=== PATIENT | female | born 1975 | race Caucasian/White ===

== ENCOUNTER → 2016-09-23 | Outpatient (CLI) | payer BC ==
--- NOTE | 2016-09-26 13:59 | Diagnostic Imaging Report ---
Bilateral screening mammogram. The current study was also evaluated with a Computer Aided Detection (CAD) system. INDICATION: Screening. No current complaints stated on the questionnaire. COMPARISON: 09/05/2014. FINDINGS: The breasts are composed of extremely dense parenchyma which would decrease mammographic sensitivity. There is no definite mass, architectural distortion, or suspicious calcifications. Allowing for technique and positional differences, no suspicious change is seen. IMPRESSION: Dense breasts with no definite change. ACR BI-RADS Category 2: Benign findings. Result letter will be mailed to the patient. Note: At least 10% of breast cancer is not imaged by mammography. Dictated by: Dictated on workstation # [id number]
== END ==
LOC: RAD 11:42
PROVIDERS: ATTEND Family Medicine
DX: Z12.31 Encounter for screening mammogram for malignant neoplasm of breast (principal)

== ENCOUNTER 2017-07-25 21:47 | Emergency (ER) | payer BC ==
[~2017-07-25] VITALS: Ht 177.8 cm; Wt 71.7 kg
--- OUTSIDE RECORDS SUMMARY | 2017-07-25 21:52 | XMS REPORT | Continuity of Care Document ---
Author Author [facility] Organization [facility] Address Unknown Phone Unavailable Allergies Active Description Code Type Severity Reaction Onset Reported/Identified Relationship to Patient Clinical Status Yes NKANo Known Allergies NKA Miscellaneous Allergy Unknown N/ A 01/31/2006 Medications Problems Date Dx Coded Attending Type Code Diagnosis Diagnosed By 10/02/2014 CHRISTIANO BURDICK MD Ot 241.0 10/02/2014 CHRISTIANO BURDICK MD Ot V76.12 01/04/2015 Ot 241.0 01/04/2015 Ot 241.0 01/04/2015 Ot V67.9 01/04/2015 CHRISTIANO BURDICK MD Ot 241.0 01/04/2015 CHRISTIANO BURDICK MD Ot 241.0 01/04/2015 CHRISTIANO UBRDICK MD Ot 241.0 01/04/2015 CHRISTIANO BURDICK MD Ot V76.12 03/02/2015 BRENDAN BROWNING MD Ot 241.1 03/02/2015 BRENDAN BROWNING MD Ot 626.4 03/02/2015 BRENDAN BROWNING MD Ot 704.00 02/29/2016 Ot 241.0 NONTOX UNINODULAR GOITER 02/29/2016 Ot 241.0 NONTOX UNINODULAR GOITER 02/29/2016 Ot V67.9 FOLLOW-UP EXAM NOS 02/29/2016 CHRISTIANO BURDICK MD Ot 241.0 NONTOX UNINODULAR GOITER 02/29/2016 CHRISTIANO BURDICK MD Ot 241.0 NONTOX UNINODULAR GOITER 02/29/2016 CHRISTIANO BURDICK MD Ot 241.0 NONTOX UNINODULAR GOITER 02/29/2016 CHRISTIANO BURDICK MD Ot V76.12 OTH SCREEN MAMMO-MALIGN NEOPLASM OF VAN[place]NA 02/29/2016 BRENDAN BROWNING MD Ot 241.1 NONTOX MULTINODUL GOITER 02/29/2016 BRENDAN BROWNING MD Ot 626.4 IRREGULAR MENSTRUATION 02/29/2016 BRENDAN BROWNING MD Ot 704.00 ALOPECIA NOS 09/24/2016 BRENDAN BROWNING MD Ot Z12.31 ENCNTR SCREEN MAMMOGRAM FOR MALIGNANT NE 09/24/2016 BRENDAN BROWNING MD Ot Z12.31 ENCNTR SCREEN MAMMOGRAM FOR MALIGNANT NE 10/01/2016 BRENDAN BROWNING MD Ot Z12.31 ENCNTR SCREEN MAMMOGRAM FOR MALIGNANT NE Procedures Results Encounters ACCT No. Visit Date/Time Discharge Status Pt. Type Provider Facility Loc./Unit Complaint [id number] 09/23/2016 11:42:00 2016 23:59:59 CLS Outpatient BRENDAN BROWNING MD [facility] RAD SCREENING [id number] 02/13/2015 10:58:00 2014 23:59:59 CLS Outpatient BRENDAN BROWNING MD [facility] RAD [id number] 09/05/2014 08:37:00 2013 23:59:59 CLS Outpatient CHRISTIANO BURDICK MD [facility] RAD [id number] 08/12/2013 11:55:00 2012 23:59:59 CLS Outpatient CHRISTIANO BURDICK MD [facility] RAD [id number] 02/04/2013 10:06:00 2012 23:59:59 CLS Outpatient CHRISTIANO BURDICK MD [facility] RAD [id number] 07/25/2017 21:49:00 ACT Emergency CYRUS DOTAN [facility] ER STOMACH PAIN [id number] 08/02/2012 09:36:00 Document Registration [id number] 02/19/2012 10:37:00 Document Registration
[2017-07-25] MEDS ORDERED: KETOROLAC 30 MG/ML VIAL IVP STA (22:28)
[2017-07-25] MEDS ORDERED: LACTATED RINGERS 1,000 ML IV ONE (22:28)
[2017-07-25] MEDS ORDERED: FAMOTIDINE 20MG/2ML IV (PEPCID) IV STA (22:28)
[2017-07-25 22:30] LABS: BASOPHILS % (AUTO) 0 % (0-10); EOSINOPHILS # (AUTO) 0.1 10^3/uL (0.0-0.3); EOSINOPHILS % (AUTO) 1 % (0-10); LYMPHOCYTES # (AUTO) 2.4 X 10^3 (1.0-4.0); LYMPHOCYTES % (AUTO) 39 % (12-44); MEAN CORPUSCULAR HEMOGLOBIN 30 PG (25-34); MEAN CORPUSCULAR HGB CONC 34 G/DL (32-36); MEAN CORPUSCULAR VOLUME 90 FL (80-99); MONOCYTES # (AUTO) 0.5 X 10^3 (0.0-1.0); MONOCYTES % (AUTO) 8 % (0-12); NEUTROPHILS # (AUTO) 3.3 X 10^3 (1.8-7.8); NEUTROPHILS % (AUTO) 53 % (42-75); PLATELET COUNT 214 10^3/uL (130-400); RED BLOOD COUNT 4.14 10^6/uL (4.35-5.85); RED CELL DISTRIBUTION WIDTH 12.1 % (10.0-14.5); WHITE BLOOD COUNT 6.2 10^3/uL (4.3-11.0)
[2017-07-25] MEDS ORDERED: HYOSCYAMINE 0.125 MG (LEVSIN) TAB SL ONE (22:30)
[2017-07-25] MEDS ORDERED: ONDANSETRON 4 MG/2 ML (SDV) Z0FRAN IVP ONE ×2 (22:30→23:00)
--- NOTE | 2017-07-25 22:34 | ED Abdominal Pain ---
General Chief Complaint: Abdominal/GI Problems Stated Complaint: STOMACH PAIN Nursing Triage Note: c/o epigastric pain x 2 hours with n/v Sepsis Screen: No Definite Risk Source of Information: Patient History of Present Illness Time Seen By Provider: 22:22 Initial Comments C/O SEVERE EPIGASTRIC PAIN X 2-3 HOURS ATE AT [facility] APPROXIMATELY 2 HOURS PRIOR TO ONSET OF SYMPTOMS--FAJITAS AND SMALL BITE OF GUACAMOLE--OTHER FAMILY MEMBERS ATE SAME EXCEPT GUACAMOLE, AND NO ONE ELSE ILL NO RADIATION OF PAIN PAIN IS CONSTANT NOTHING WORSENS OR IMPROVES PAIN + NAUSEA, AND VOMITED X 1 NO DIARRHEA, NORMAL BM TODAY NO FEVER NO URINARY SYMPTOMS NO HISTORY OF SIMILAR LMP 1 WEEK AGO, NORMAL, NO CONTROL PCP: DR. BROWNING Allergies and Home Medications Allergies Coded Allergies: No Known Allergies (Verified Allergy, Unknown, 01/31/06) Home Medications Hyoscyamine Sulfate 0.125 Mg Tab.subl, 1-2 TAB SL Q4H, #15 Prescribed by: TAN BRIDGES on 07/25/17 235 Nitrofurantoin Monohyd/M-Cryst 100 Mg Capsule, 100 MG PO BID, #20 Prescribed by: TAN BRIDGES on 07/25/17 2356 Ondansetron 4 Mg Tab.rapdis, 4 MG PO Q4H, #10 Prescribed by: TAN BRIDGES on 07/25/17 2356 Pantoprazole Sodium 40 Mg Tablet.dr, 40 MG PO DAILY, #15 Prescribed by: TAN BRIDGES on 07/25/17 235 Tramadol HCl 50 Mg Tablet, 50 MG PO Q4H, #20 Prescribed by: TAN BRIDGES on 07/25/17 2356 Review of Systems Constitutional: no symptoms reported Respiratory: No Symptoms Reported Cardiovascular: No Symptoms Reported Gastrointestinal: See HPI, Abdominal Pain, Denies Constipated, Denies Diarrhea , Nausea, Denies Poor Appetite, Denies Poor Fluid Intake, Vomiting Genitourinary: No Symptoms Reported Musculoskeletal: no symptoms reported, No back pain Skin: no symptoms reported Psychiatric/Neurological: No Symptoms Reported Endocrine: No Symptoms Reported Past Awafgpe-Jdlnyl-Fivvzw Hx Patient Social History Alcohol Use: Denies Use Recreational Drug Use: No Smoking Status: Never a Smoker Recent Foreign Travel: No Contact w/Someone Who Travel: No Recent Infectious Disease Expo: No Physical Abuse: No Sexual Abuse: No Surgeries History of Surgeries: Yes (LEFT INGUINAL HERNIA ) Surgeries: Abdominal Respiratory History of Respiratory Disorde: No Cardiovascular History of Cardiac Disorders: No Neurological History of Neurological Disord: No Reproductive System : No Female Reproductive Disorders: Denies Genitourinary History of Genitourinary Disor: No Gastrointestinal History of Gastrointestinal Di: No (LEFT INGUINAL HERNIA REPAIRED INFANT) Musculoskeletal History of Musculoskeletal Dis: No Endocrine History of Endocrine Disorders: No HEENT History of HEENT Disorders: No Cancer History of Cancer: No Psychosocial History of Psychiatric Problem: No Suicide Risk Score: 0 Integumentary History of Skin or Integumenta: No Blood Transfusions History of Blood Disorders: No Physical Exam Vital Signs VS - Last 72 Hours, by Label 07/25/17 07/26/17 22:07 00:15 Temp 98.4 98.2 Pulse 63 63 Resp 18 16 B/P (MAP) 124/79 Pulse Ox 96 94 O2 Delivery Room Air Capillary Refill : Less Than 3 Seconds General Appearance: WD/WN, no apparent distress HEENT: PERRL/EOMI, No scleral icterus (R), No scleral icterus (L) Neck: normal inspection Respiratory: normal breath sounds, no respiratory distress, no accessory muscle use Cardiovascular: regular rate, rhythm, no murmur Gastrointestinal: normal bowel sounds, soft, no organomegaly, no pulsatile mass , No distended, No guarding, No rebound, tenderness (MODERATE EPIGASTRIC TENDERNESS), No hernia, No mass Extremities: normal inspection Back: normal inspection, no CVA tenderness Neurologic/Psychiatric: manager ems II-XII nml as tested, no motor/sensory deficits, alert, normal mood/affect, oriented x 3 Skin: normal color, warm/dry, No jaundice, No rash Progress/Results/Core Measures Results/Orders Lab Results Laboratory Tests Test 07/25/17 22:10 07/25/17 22:19 Range/Units White Blood Count 6.2 4.3-11.0 10^3/uL Red Blood Count 4.14 L 4.35-5.85 10^6/uL Hemoglobin 12.6 11.5-16.0 G/DL Hematocrit 37 35-52 % Mean Corpuscular Volume 90 80-99 FL Mean Corpuscular Hemoglobin 30 25-34 PG Mean Corpuscular Hemoglobin Concent 34 32-36 G/DL Red Cell Distribution Width 12.1 10.0-14.5 % Platelet Count 214 130-400 10^3/uL Mean Platelet Volume 11.0 H 7.4-10.4 FL Neutrophils (%) (Auto) 53 42-75 % Lymphocytes (%) (Auto) 39 12-44 % Monocytes (%) (Auto) 8 0-12 % Eosinophils (%) (Auto) 1 0-10 % Basophils (%) (Auto) 0 0-10 % Neutrophils # (Auto) 3.3 1.8-7.8 X 10^3 Lymphocytes # (Auto) 2.4 1.0-4.0 X 10^3 Monocytes # (Auto) 0.5 0.0-1.0 X 10^3 Eosinophils # (Auto) 0.1 0.0-0.3 10^3/uL Basophils # (Auto) 0.0 0.0-0.1 10^3/uL Sodium Level 143 135-145 MMOL/L Potassium Level 3.3 L 3.6-5.0 MMOL/L Chloride Level 107 98-107 MMOL/L Carbon Dioxide Level 22 21-32 MMOL/L Anion Gap 14 5-14 MMOL/L Blood Urea Nitrogen 13 7-18 MG/DL Creatinine 0.76 0.60-1.30 MG/DL Estimat Glomerular Filtration Rate > 60 BUN/Creatinine Ratio 17 Glucose Level 149 H 70-105 MG/DL Calcium Level 8.9 8.5-10.1 MG/DL Total Bilirubin 0.4 0.1-1.0 MG/DL Aspartate Amino Transf (AST/SGOT) 23 5-34 U/L Alanine Aminotransferase (ALT/SGPT) 17 0-55 U/L Alkaline Phosphatase 44 40-136 U/L Total Protein 6.3 L 6.4-8.2 GM/DL Albumin 4.0 3.2-4.5 GM/DL Amylase Level 62 25-125 U/L Lipase 37 8-78 U/L Urine Color YELLOW Urine Clarity SLIGHTLY CLOUDY Urine pH 7 5-9 Urine Specific [place] 1.015 L 1.016-1.022 Urine Protein 1+ H NEGATIVE Urine Glucose (UA) NEGATIVE NEGATIVE Urine Ketones NEGATIVE NEGATIVE Urine Nitrite NEGATIVE NEGATIVE Urine Bilirubin NEGATIVE NEGATIVE Urine Urobilinogen 8 H NORMAL MG/DL Urine Leukocyte Esterase 2+ H NEGATIVE Urine RBC (Auto) 2+ H NEGATIVE Urine RBC 0-2 /HPF Urine WBC 5-10 H /HPF Urine Squamous Epithelial Cells 25-50 H /HPF Urine Renal Epithelial Cells NONE /HPF Urine Crystals NONE /LPF Urine Bacteria TRACE /HPF Urine Casts NONE /LPF Urine Mucus MODERATE H /LPF Urine Culture Indicated YES Urine Test NEGATIVE NEGATIVE My Orders Orders - TAN BRIDGES DO Saline Lock/Iv-Start (07/25/17 22:28) Saline Lock/Iv-Start (07/25/17 22:28) Lactated Ringers (Lr 1000 Ml Iv Solution (07/25/17 22:28) Ondansetron Injection (Zofran Injectio (07/25/17 22:30) Famotidine Injection (Pepcid Injection) (07/25/17 22:28) Hyoscyamine Sl Tablet (Levsin Sl Tablet) (07/25/17 22:30) Ketorolac Injection (Toradol Injection) (07/25/17 22:28) Abdomen/Kub 1[place] (07/25/17 22:30) Ct Abdomen/Pelvis W (07/25/17 22:30) Hcg,Qualitative Urine (07/25/17 22:52) Ondansetron Injection (Zofran Injectio (07/25/17 23:00) Rx-Hyoscyamine Tab (Rx-Levsin Sl) (07/25/17 23:51) Rx-Ondansetron Po (Rx-Zofran Po) (07/25/17 23:51) Rx-Tramadol Hcl (Rx-Ultram) (07/25/17 23:51) Medications Given in ED Current Medications Medications Dose Ordered Sig/Ajit Route Start Time Stop Time Status Last Admin Dose Admin Hyoscyamine Sulfate 0.25 mg ONCE ONCE SL 07/25/17 22:30 07/25/17 22:31 DC 07/25/17 23:05 0.25 MG Lactated Ringer's 1,000 ml @ 0 mls/hr Q0M ONCE IV 07/25/17 22:28 07/25/17 22:30 DC 07/25/17 23:05 0 MLS/HR Ondansetron HCl 4 mg ONCE ONCE IVP 07/25/17 22:30 07/25/17 22:31 DC 07/25/17 23:05 4 MG Vital Signs/I&O Vital Sign - Last 12Hours 07/25/17 07/26/17 22:07 00:15 Temp 98.4 98.2 Pulse 63 63 Resp 18 16 B/P (MAP) 124/79 Pulse Ox 96 94 O2 Delivery Room Air Blood Pressure Mean: 94 Progress Note : Progress Note ALL SYMPTOMS RESOLVED AT DISMISSAL DISCUSSED WITH PT AND POSSIBLE ETIOLOGIES, INCLUDING GALLBLADDER PROBLEMS, GASTRITIS/ULCERS, VIRAL ILLNESS, ETC. ALSO DISCUSSED OTHER TESTING THAT COULD BE DONE AN OUTPATIENT IF HER SYMPTOMS RECUR, INCLUDING ULTRASOUND, HIDA SCAN, EGD. ETC. PT COMFORTABLE GOING HOME AND SHE WILL FOLLOW UP WITH HER PCP FOR FURTHER CARE. Diagnostic Imaging Comments CT ABDOMEN/ PELVIS--NO ACUTE PROCESS, LARGE HEPATIC HEMANGIOMA; RIGHT OVARIAN CYST 4.7 CM, 9 MM NON-SPECIFIC ENDOMETRIAL FILLING DEFECT-POSSIBLY FIBROID OR POLYP. PER [facility] VIA FAX @ [phone] Reviewed: Reviewed by Me Departure Impression Impression: Primary Impression: Epigastric abdominal pain Additional Impressions: UTI (urinary tract infection) Hepatic hemangioma Ovarian cyst Disposition: HOME, SELF-CARE Condition: Improved Departure-Patient Inst. Referrals: BRENDAN BROWNING MD (PCP/Family) Primary Care Physician Patient Instructions: Acute Abdomen (Belly Pain), Adult (DC), Liver Hemangioma , Ovarian Cyst (DC), Urinary Tract Infection, Adult (DC) Add. Discharge Instructions: CLEAR LIQUIDS--WATER, BROTH, JELLO, GATORADE BRATS DIET--BANANAS, RICE, APPLESAUCE, TOAST, SALTINES FOLLOW UP WITH DR. BROWNING THIS WEEK FOR FURTHER CARE RETURN TO ER IF SYMPTOMS WORSEN All discharge instructions reviewed with patient and/or family. Voiced understanding. Scripts Ondansetron (Zofran Odt) 4 Mg Tab.rapdis 4 MG PO Q4H for Nausea/Vomiting, #10 TAB Prov: CYRUS,TAN K DO 07/25/17 Tramadol HCl (Ultram) 50 Mg Tablet 50 MG PO Q4H, #20 TAB Prov: CYRUS,TAN K DO 07/25/17 Pantoprazole Sodium (Protonix) 40 Mg Tablet. 40 MG PO DAILY, #15 TAB Prov: CYRUS,TAN K DO 07/25/17 Hyoscyamine Sulfate (Levsin-Sl) 0.125 Mg Tab.subl 1-2 TAB SL Q4H for Abdominal Pain, #15 TAB Prov: TAN BRIDGES DO 07/25/17 Nitrofurantoin Monohyd/M-Cryst (Macrobid 100 mg Capsule) 100 Mg Capsule 100 MG PO BID, #20 CAP Prov: TAN BRIDGES DO 07/25/17 TAN BRIDGES DO Jul 25, 2017 22:34
[2017-07-25 22:35] LABS: BILIRUBIN,URINE NEGATIVE (NEGATIVE); KETONES,URINE NEGATIVE (NEGATIVE); LEUKOCYTE ESTERASE ,URINE 2+ (NEGATIVE); NITRITE,URINE NEGATIVE (NEGATIVE); PH,URINE 7 (5-9); PROTEIN,URINE 1+ (NEGATIVE); UROBILINOGEN,URINE 8 MG/DL (NORMAL)
[2017-07-25 22:48] LABS: SQUAMOUS EPITHELIAL CELL,UR 25-50 /HPF
[2017-07-25 22:48] LABS: ALANINE AMINOTRANSFERASE 17 U/L (0-55); AMYLASE 62 U/L (25-125); ANION GAP 14 MMOL/L (5-14); ASPARTATE AMINO TRANSFERASE 23 U/L (5-34); BILIRUBIN,TOTAL 0.4 MG/DL (0.1-1.0); BLOOD UREA NITROGEN 13 MG/DL (7-18); BUN/CREATININE RATIO 17; CALCIUM 8.9 MG/DL (8.5-10.1); CARBON DIOXIDE 22 MMOL/L (21-32); CHLORIDE 107 MMOL/L (98-107); CREATININE SERUM 0.76 MG/DL (0.60-1.30); GFR ESTIMATED > 60; GLUCOSE 149 MG/DL (70-105); LIPASE 37 U/L (8-78); POTASSIUM 3.3 MMOL/L (3.6-5.0); SODIUM 143 MMOL/L (135-145); TOTAL PROTEIN 6.3 GM/DL (6.4-8.2)
[2017-07-25] MEDS ORDERED: RX-ONDANSETRON 4 MG ODT (ZOFRAN) PPK #4 PO STA (23:51)
[2017-07-25] MEDS ORDERED: RX-HYOSCYAMINE 0.125 MG SL (LEVSIN) PPK#6 SL STA (23:51)
[2017-07-25] MEDS ORDERED: RX-TRAMADOL 50 MG (ULTRAM) TAB PPK#4 PO STA (23:51)
[2017-07-25] MEDS ORDERED: PANT40TA2 PO (23:56)
[2017-07-25] MEDS ORDERED: HYOS0.1283 SL (23:56)
[2017-07-25] MEDS ORDERED: NITR-65 PO (23:56)
[2017-07-25] MEDS ORDERED: TRAM-42 PO (23:56)
[2017-07-25] MEDS ORDERED: ONDA4TAB8 PO (23:56)
[2017-07-26 00:15] VITALS: BP 118/77
--- NOTE | 2017-07-26 07:15 | Diagnostic Imaging Report ---
INDICATION: Epigastric pain. FINDINGS: KUB shows normal stool and gas pattern throughout the colon. The stomach and small bowel are not distended. There is no organomegaly. No pathologic calcification. IMPRESSION: Normal KUB. Dictated by: Dictated on workstation # [id number]
--- NOTE | 2017-07-26 07:51 | Diagnostic Imaging Report ---
PROCEDURE: CT abdomen and pelvis with contrast. TECHNIQUE: Multiple contiguous axial images were obtained through the abdomen and pelvis after administration of intravenous contrast. INDICATION: Epigastric pain. FINDINGS: There is an approximately 5.3 cm low-density lesion in the dome of the right lobe of the liver. This does show peripheral somewhat nodular enhancement following IV contrast and is most likely a cavernous hemangioma. There is edematous appearance extending along the portal system throughout the liver raising question of possible cholangitis. The gallbladder appears normal. Bile ducts are not dilated. Pancreas and spleen appear normal. Adrenal glands are normal. The kidneys are normal. There is normal enhancement of the aorta and abdominal vessels. Stomach and small bowel are not distended. The colon shows normal stool and gas pattern. Appendix is normal. There is question of endometrial thickening with possible endometrial polyp measuring approximately 10 mm. There is a cyst in the right adnexa measuring approximately 5 cm. No free fluid. No intra-abdominal adenopathy. No bony abnormalities. IMPRESSION: 1. 5.3 cm hypodense lesion in the dome of the liver with characteristics of cavernous hemangioma. 2. Hypodense edematous appearance along the portal venous system throughout the liver raising question of possible ascending cholangitis. Clinical correlation. 3. Cyst in right adnexa measuring approximately 5 cm most likely ovarian in nature. Question of endometrial polyp measuring approximately 10 mm. Would recommend nonemergent pelvic ultrasound. These findings are concordant with preliminary report. Dictated by: Dictated on workstation # [id number]
== END 2017-07-26 00:14 | disposition home or self-care (01) ==
LOC: EDUNIT# 21:47 → ER 21:49
DX: N39.0 Urinary tract infection, site not specified (principal); D18.03 Hemangioma of intra-abdominal structures; N83.201 Unspecified ovarian cyst, right side; Z87.19 Personal history of other diseases of the digestive system
CPT/HCPCS: 36415; 74000; 74177; 80053; 81000; 82150; 83690; 84703; 85025; 87088

== ENCOUNTER → 2017-08-06 | Outpatient (CLI) | payer BC ==
[~2017-08-06] MED LIST: HYOS0.1283 SL; NITR-65 PO; ONDA4TAB8 PO; PANT40TA2 PO; TRAM-42 PO
--- NOTE | 2017-08-06 11:02 | Diagnostic Imaging Report ---
INDICATION: Abdominal pain. Recent abnormal CT imaging of the pelvis. TECHNIQUE: Multiple real time padilla scale sonographic images were obtained of the pelvis transabdominally and transvaginally. CORRELATION STUDY: CT imaging 07/25/2017 FINDINGS: UTERUS/ENDOMETRIUM: Uterus measures 10.8 x 5.8 x 5.3 cm. Endometrial thickness is 5-7 mm. Uterus mildly prominent but otherwise unremarkable. The endometrial thickness is within normal limits for a premenopausal patient. RIGHT OVARY: Enlarged at 6.0 x 4.0 x 6.2 cm. LEFT OVARY: 3.0 x 1.7 x 2.0 cm. Hypoechoic mass most compatible with a cyst of the right ovary measuring approximately 5 cm maximum dimension. Vascular flow is demonstrated to both ovaries. No significant free pelvic fluid. IMPRESSION: 1. Endometrial thickness within normal limits for a premenopausal patient. 2. 5 cm right ovarian cyst. Dictated by: Dictated on workstation # [id number]
--- NOTE | 2017-08-06 13:12 | Diagnostic Imaging Report ---
PROCEDURE: US Gallbladder. TECHNIQUE: Multiple real-time grayscale images were obtained over the right upper quadrant in various projections. INDICATION: Abdominal pain. FINDINGS: The pancreas visualized portions appear unremarkable. The liver demonstrates increased echogenicity which may relate to hepatitis. The lesion with features of hemangioma in the posterior aspect of the right hepatic lobe seen on CT scan of 07/25/2017 is obscured on this exam. The portal vein is patent with hepatopetal flow seen. The gallbladder demonstrates hyperechoic nodules along the wall up to 2 mm compatible with polyps. The CBD is 6 mm in caliber. The right kidney is 9.9 cm in length with no hydronephrosis or focal lesion. No fluid collection in the upper right abdomen seen. Sonographic Frank's sign is reportedly negative. IMPRESSION: 1. The liver is hyperechoic which may relate to hepatitis. 2. Gallbladder polyps up to 2 mm in size. Dictated by: Dictated on workstation # [id number]
== END ==
LOC: RAD 09:48
PROVIDERS: ATTEND Nurse Practitioner Family
DX: N83.201 Unspecified ovarian cyst, right side (principal); K82.4 Cholesterolosis of gallbladder
CPT/HCPCS: 76705; 76830; 76856

== ENCOUNTER → 2017-11-25 | Outpatient (CLI) | payer BC ==
--- NOTE | 2017-11-25 14:12 | Diagnostic Imaging Report ---
INDICATION: Routine screening. Comparison is made with prior exam from 09/23/2016 and 09/05/2014. The current study was also evaluated with a Computer Aided Detection (CAD) system. FINDINGS: Both breasts demonstrate marked parenchymal heterogeneity and increased density, limiting the sensitivity of mammography. There are circumscribed densities in both breasts, likely cysts. No spiculated mass or malignant-appearing microcalcifications are seen. The axillae are unremarkable. IMPRESSION: No mammographic features suspicious for malignancy are identified. ACR BI-RADS Category 2: Benign findings. Result letter will be mailed to the patient. Note: At least 10% of breast cancer is not imaged by mammography. Dictated by: Dictated on workstation # [id number]
== END ==
LOC: RAD 11:19
PROVIDERS: ATTEND Obstetrics & Gynecology
DX: Z12.31 Encounter for screening mammogram for malignant neoplasm of breast (principal)
CPT/HCPCS: 77067

== ENCOUNTER → 2017-12-09 | Outpatient (CLI) | payer BC ==
--- NOTE | 2017-12-09 09:42 | Diagnostic Imaging Report ---
Procedure: Hepatic ultrasound. Indication: Inflammation Of the liver. Findings: The previous gallbladder ultrasound exam performed 08/06/2017 noted a roughly 5 CM area of altered echogenicity within the right lobe liver. This finding was felt to be secondary to a hemangioma. This suspected hemangioma is also seen on the previous CT abdomen/pelvis exam of 07/25/2007. On this exam the area of altered echogenicity within the right lower liver seen previous is again evident and does not seem to have changed significantly. This is most likely a benign process such as a hemangioma. The previous study also raises the question of hepatitis. On this exam there is no focal inflammatory process involving the liver. The liver is of normal echogenicity and the biliary tree does not appear to be abnormally dilated. Spectral color flow imaging of the portal vein shows the vein is patent and that there is normal directional flow within the vein. The prior exam also suggested several small non-shadowing, nonmobile soft tissue densities adjacent to the gallbladder wall. These were felt to be related to polyps within the gallbladder. These suspected polyps do seem more numerous and perhaps slightly larger than the previous study. This appearance is nonspecific but could be related to adenomyomatosis. The gallbladder was not thickened and there is no pericholecystic fluid to suggest acute cholecystitis. There is no evidence for cholelithiasis either. The common bile duct is not dilated. The right kidney is unremarkable. The pancreas is obscured by bowel gas as was the proximal aorta. Impression: 1. The suspected hemangioma involving the right lower liver seen previous is again evident and no different. There is no acute abnormality of the liver identified otherwise however. 2. The small non shadowing, nonmotile defects within the gallbladder seen on the prior study do seem larger and more numerous on this exam. These findings are probably related to polyps. The possibly of adenomyomatosis should be considered. 4. There is no acute abnormality of the gallbladder. Dictated by: Dictated on workstation # [id number]
== END ==
LOC: RAD 07:59
PROVIDERS: ATTEND Nurse Practitioner Family
DX: K75.9 Inflammatory liver disease, unspecified (principal); K82.8 Other specified diseases of gallbladder
CPT/HCPCS: 76705

== ENCOUNTER → 2018-09-17 | Outpatient (CLI) | payer BC ==
--- NOTE | 2018-09-17 19:02 | Diagnostic Imaging Report ---
INDICATION: Palpable lump left breast. Correlation is made with prior mammograms from 11/25/2017 and 09/23/2016. 2-D and 3-D bilateral diagnostic mammography was performed with a Computer Aided Detection (CAD) system. FINDINGS: Both breasts remain markedly dense, limiting the sensitivity of mammography. BB marker was placed at the area of palpable abnormality upper outer left breast. There is a circumscribed density deep to this location approximately 2 cm in size suggestive of a cyst. There are numerous other circumscribed masses in both breasts, largest upper right breast which are similar to prior studies and most consistent with cysts. No malignant appearing microcalcifications are seen. Axillae are unremarkable. IMPRESSION: Circumscribed density in the upper outer left breast just deep to the area of palpable abnormality, likely cyst. Even so, sonographic interrogation of this area is recommended and will be performed today. ACR BI-RADS Category 0: Incomplete. (Needs additional imaging evaluation). Result letter will be mailed to the patient. Note: At least 10% of breast cancer is not imaged by mammography. Dictated by: Dictated on workstation # [id number]
== END ==
LOC: RAD 13:35
PROVIDERS: ATTEND Obstetrics & Gynecology
DX: N63.21 Unspecified lump in the left breast, upper outer quadrant (principal)
CPT/HCPCS: 77066

== ENCOUNTER 2018-11-25 05:50 | Outpatient (CLI) | payer BC ==
[~2018-11-25] VITALS: Ht 177.8 cm; Wt 71.7 kg
[2018-11-25] MEDS ORDERED: DESO1TAB4 PO (10:44)
[2018-11-25] MEDS ORDERED: FLUO20CA42 PO (10:44)
== END 2018-11-25 10:51 | disposition home or self-care (01) ==
LOC: PREOP 05:50
PROVIDERS: ATTEND Surgery
DX: Z01.818 Encounter for other preprocedural examination (principal)

== ENCOUNTER 2018-12-03 07:18 | Day surgery (SDC) | payer BC ==
[~2018-12-03] VITALS: Ht 177.8 cm; Wt 71.7 kg
[~2018-12-03 07:18] MED LIST changes: +DESO1TAB4 PO; +FLUO20CA42 PO
--- OUTSIDE RECORDS SUMMARY | 2018-12-03 07:23 | XMS REPORT | CCD ---
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 [employer] Name Role Phone PP Unavailable CCM Unavailable Summary Purpose Interface Exchange Insurance Providers Payer name Policy type / Coverage type Covered republican ID Effective Begin Date Effective End Date Blue Cross Blue Shield [facility] Blue Cross/Blue Shield [id number] Unknown Family history Grandmother Diagnosis Age At Onset Diabetes Unknown Mother Diagnosis Age At Onset Cancer Unknown Social History Social History Element Codes Description Effective Dates Marital status Unknown [place] 07/28/2017 Number of children Unknown 3 02/08/[address]: 959861680 Never smoker 02/08/2015 Alcohol history Unknown occasionally drinks alcohol 02/08/2015 Frequency of drinks SNOMED CT: 293356480 1-4 drinks per week 02/08/2015 Allergies, Adverse Reactions, Alerts Substance Reaction Codes Entered Date Inactivated Date Status * NO KNOWN DRUG ALLERGIES Unknown 02/08/2015 No Inactive Date Active Past Medical History Illness Codes Condition Status Onset Date Resolved Date Encounter for general adult medical examination without abnormal findings ICD-9: V70.0 ICD-10: Z00.00 Active 09/09/2016 Unknown Excessive and frequent menstruation with regular cycle ICD-9: 626.2 ICD-10: N92.0 Active 01/16/2017 Unknown Abnormal findings on diagnostic imaging of other abdominal regions, including retroperitoneum ICD-9: 793.6 ICD-10: R93.5 Active 08/10/2017 Unknown Generalized abdominal pain ICD-9: 789.07 ICD-10: R10.84 Active 07/28/2017 Unknown Abnormal findings on diagnostic imaging of other specified body structures ICD-9: 793.5 ICD-10: R93.8 Active 07/28/2017 Unknown Polyp of corpus uteri ICD-9: 621.0 ICD-10: N84.0 Active 07/28/2017 Unknown Encounter for gynecological examination (general) (routine ) without abnormal findings ICD-9: V72.31 ICD-10: Z01.419 Active 03/18/2017 Unknown Other benign neoplasm of skin of unspecified part of face ICD-9: 216.3 ICD-10: D23.30 Active 07/15/2015 Unknown Sacrococcygeal disorders, not elsewhere classified ICD-9: 724.79 ICD-10: M53.3 Active 06/18/2015 Unknown Hypertension Unknown Active 02/08/2015 Unknown Menorrhagia with irregular cycle ICD-9: 626.2 Active 2014 Unknown Multinodular goiter ICD-9: 241.1 Active 02/07/2015 Unknown Nonscarring hair loss ICD-9: 704.09 Active 02/07/2015 Unknown Routine medical exam ICD-9: V70.0 Active 02/07/2015 Unknown Problems Condition Codes Effective Dates Condition Status Encounter for general adult medical examination without abnormal findings ICD-9: V70.0 ICD-10: Z00.00 09/09/2016 Active Excessive and frequent menstruation with regular cycle ICD-9: 626.2 ICD-10: N92.0 01/16/2017 Active Abnormal findings on diagnostic imaging of other abdominal regions, including retroperitoneum ICD-9: 793.6 ICD-10: R93.5 08/10/2017 Active Generalized abdominal pain ICD-9: 789.07 ICD-10: R10.84 07/28/2017 Active Abnormal findings on diagnostic imaging of other specified body structures ICD-9: 793.5 ICD-10: R93.8 07/28/2017 Active Polyp of corpus uteri ICD-9: 621.0 ICD-10: N84.0 07/28/2017 Active Encounter for gynecological examination (general) (routine ) without abnormal findings ICD-9: V72.31 ICD-10: Z01.419 03/18/2017 Active Other benign neoplasm of skin of unspecified part of face ICD-9: 216.3 ICD-10: D23.30 07/15/2015 Active Sacrococcygeal disorders, not elsewhere classified ICD-9: 724.79 ICD-10: M53.3 06/18/2015 Active Hypertension Unknown 02/08/2015 Active Menorrhagia with irregular cycle ICD-9: 626.2 02/07/2015 Active Multinodular goiter ICD-9: 241.1 02/07/2015 Active Nonscarring hair loss ICD-9: 704.09 02/07/2015 Active Routine medical exam ICD-9: V70.0 02/07/2015 Active Medications Medication Codes Instructions Start Date Stop Date Status Fill Instructions Desogen 0.15 mg-0.03 mg tablet RxNorm: 167531 1 Tablet(s) daily TAKE 1 TABLET BY MOUTH ONCE DAILY 07/23/2018 07/17/2019 Active Diflucan 150 mg tablet RxNorm: 693022 1 Tablet(s) PO daily 04/201807/21/2018 Inactive Diflucan 150 mg tablet RxNorm: 078496 1 Tablet(s) PO daily 04/201807/14/2018 Inactive Desogen 0.15 mg-0.03 mg tablet RxNorm: 111248 1 Tablet(s) daily TAKE 1 TABLET BY MOUTH ONCE DAILY 06/29/2018 07/22/2018 Inactive hold until patient calls for reill Desogen 0.15 mg-0.03 mg tablet RxNorm: 574733 Tablet(s) TAKE 1 TABLET BY MOUTH ONCE DAILY 06/24/2018 06/28/2018 Inactive Generic For:*DESOGEN-28 05/03/2018 9:04: 52 AM Desogen 0.15 mg-0.03 mg tablet RxNorm: 285680 TAKE 1 TABLET BY MOUTH ONCE DAILY 05/03/2018 06/23/2018 Inactive Generic For:*DESOGEN-28 05/03/2018 9:04:52 AM Desogen 0.15 mg-0.03 mg tablet RxNorm: 225084 1 Tablet(s) PO daily 08/10/2017 08/09/2017 Inactive Desogen 0.15 mg-0.03 mg tablet RxNorm: 460148 1 Tablet(s) PO daily 08/10/2017 05/02/2018 Inactive Lo Loestrin Fe 1 mg-10 mcg (24)/10 mcg (2) tablet RxNorm: 3163264 1 Tablet(s) PO daily 03/18/2017 06/15/2017 Inactive ferrous sulfate 325 mg (65 mg iron) tablet RxNorm: 478908 1 Tablet(s) PO BID No Start Date 07/27/2017 Inactive sertraline 25 mg tablet RxNorm: 384109 1 Tablet(s) PO daily No Start Date 07/15/2015 Inactive Medication Administered No Medication Administered data Immunizations Vaccine Codes Date Status Influenza CVX: 141 06/07/2014 completed Assessments Condition Codes Effective Dates Encounter for general adult medical examination without abnormal findings ICD-10: Z00.00 ICD-9: V70.0 06/29/2018 Generalized abdominal pain ICD-10: R10.84 ICD-9: 789.07 08/10/2017 Abnormal findings on diagnostic imaging of other abdominal regions, including retroperitoneum ICD-10: R93.5 ICD-9: 793.6 08/10/2017 Polyp of corpus uteri ICD-10: N84.0 ICD-9: 621.0 07/28/2017 Abnormal findings on diagnostic imaging of other specified body structures ICD-10: R93.8 ICD-9: 793.5 07/28/2017 Encounter for gynecological examination (general) (routine) without abnormal findings ICD-10: Z01.419 ICD-9: V72.31 03/18/2017 Excessive and frequent menstruation with regular cycle ICD- 10: N92.0 ICD-9: 626.2 02/04/2017 Other benign neoplasm of skin of unspecified part of face ICD-10: D23.30 ICD-9: 216.3 07/16/2015 Sacrococcygeal disorders, not elsewhere classified ICD-10: M53.3 ICD-9: 724.79 06/19/2015 Nonscarring hair loss ICD-9: 704.09 02/08 Routine medical exam ICD-9: V70.0 2014 Multinodular goiter ICD-9: 241.1 2014 Menorrhagia with irregular cycle ICD-9: 626.2 02/08/2015 Reason For Visit Reason For Visit Effective Dates Notes well woman exam (40-65 years) 06/29/2018 abdominal pain 07/28/2017 well woman exam (40-65 years) 03/18/2017 menstrual irregularity 01/16/2017 _ 09/09/2016 yearly visit office procedure 07/16/2015 mole check 06/19/2015 menstrual irregularity 02/08/2015 Results No Results data Review of Systems System Result Effective Dates Constitutional No recent illness 2017 Constitutional No chills 06/29/2018 Constitutional No diaphoresis 06/29/2018 Constitutional No fever 06/29/2018 Eyes No blindness 06/29/2018 Ears/Nose/Throat/Neck No nasal allergies 06/29/2018 Ears/Nose/Throat/Neck No nasal discharge 06/29/2018 Cardiovascular No chest pain/pressure Cardiovascular No dyspnea 06/29/2018 Respiratory No cough 06/29/2018 Respiratory No dyspnea 06/29/2018 Gastrointestinal No abdominal pain 2017 Dermatologic No rash 06/29/2018 Neurologic No alteration of consciousness 06/29/2018 Neurologic No mental status change 2017 Musculoskeletal No joint complaint 2017 Genitourinary/Nephrology No dysuria 06/29 Genitourinary/Nephrology No breast complaint 06/29/2018 Constitutional recent illness 07/28/2017 Constitutional No chills 07/28/2017 Constitutional No fever 07/28/2017 Eyes No eye discharge 07/28/2017 Eyes No eye erythema 07/28/2017 Ears/Nose/Throat/Neck No headache 2016 Ears/Nose/Throat/Neck No nasal discharge 07/28/2017 Ears/Nose/Throat/Neck No sore throat Cardiovascular No chest pain/pressure Cardiovascular No dyspnea 07/28/2017 Cardiovascular No fatigue 07/28/2017 Cardiovascular No syncope 07/28/2017 Respiratory No chest congestion 2016 Respiratory No chest tightness 2016 Respiratory No cough 07/28/2017 Respiratory No dyspnea on exertion 2016 Respiratory No dyspnea 07/28/2017 Gastrointestinal No constipation 2016 Gastrointestinal No diarrhea 07/28/2017 Genitourinary/Nephrology No breast complaint 07/28/2017 Genitourinary/Nephrology No dysuria 07/28 Genitourinary/Nephrology No genital lesion 07/28/2017 Genitourinary/Nephrology No hematuria Genitourinary/Nephrology No menopausal symptoms 07/28/2017 Genitourinary/Nephrology menstrual irregularity 07/28/2017 Genitourinary/Nephrology No pelvic pain 07/28/2017 Genitourinary/Nephrology No urinary incontinence 07/28/2017 Genitourinary/Nephrology No vaginal discharge 07/28/2017 Musculoskeletal No stiffness 07/28/2017 Musculoskeletal No swelling 07/28/2017 Musculoskeletal No muscle weakness 2016 Musculoskeletal No myalgias 07/28/2017 Dermatologic No rash 07/28/2017 Neurologic No dizziness 07/28/2017 Neurologic No headache 07/28/2017 Neurologic No neck pain 07/28/2017 Neurologic No syncope 07/28/2017 Psychiatric No anxiety 07/28/2017 Psychiatric No depression 07/28/2017 Gastrointestinal abdominal pain 2016 Gastrointestinal nausea 07/28/2017 Constitutional No chills 03/18/2017 Constitutional No fever 03/18/2017 Constitutional No recent illness 2016 Eyes No eye discharge 03/18/2017 Eyes No eye erythema 03/18/2017 Ears/Nose/Throat/Neck No headache 2016 Ears/Nose/Throat/Neck No nasal discharge 03/18/2017 Ears/Nose/Throat/Neck No sore throat 08/2017 Cardiovascular No chest pain/pressure 08/2017 Cardiovascular No dyspnea 03/18/2017 Cardiovascular No fatigue 03/18/2017 Cardiovascular No syncope 03/18/2017 Respiratory No chest congestion 2016 Respiratory No chest tightness 2016 Respiratory No cough 03/18/2017 Respiratory No dyspnea 03/18/2017 Respiratory No dyspnea on exertion 2016 Gastrointestinal No abdominal pain 2016 Gastrointestinal No constipation 2016 Gastrointestinal No diarrhea 03/18/2017 Genitourinary/Nephrology No breast complaint 03/18/2017 Genitourinary/Nephrology No dysuria 03/18 Genitourinary/Nephrology No genital lesion 03/18/2017 Genitourinary/Nephrology No hematuria 08/2017 Genitourinary/Nephrology No menopausal symptoms 03/18/2017 Genitourinary/Nephrology menstrual irregularity 03/18/2017 Genitourinary/Nephrology No pelvic pain 03/18/2017 Genitourinary/Nephrology No urinary incontinence 03/18/2017 Genitourinary/Nephrology No vaginal discharge 03/18/2017 Dermatologic No rash 03/18/2017 Psychiatric No anxiety 03/18/2017 Psychiatric No depression 03/18/2017 Neurologic No dizziness 03/18/2017 Neurologic No headache 03/18/2017 Neurologic No neck pain 03/18/2017 Neurologic No syncope 03/18/2017 Musculoskeletal No stiffness 03/18/2017 Musculoskeletal No swelling 03/18/2017 Musculoskeletal No muscle weakness 2016 Musculoskeletal No myalgias 03/18/2017 Constitutional No recent illness 2016 Constitutional No chills 01/16/2017 Constitutional No diaphoresis 01/16/2017 Constitutional No fever 01/16/2017 Eyes No eye erythema 01/16/2017 Ears/Nose/Throat/Neck No nasal allergies 01/16/2017 Ears/Nose/Throat/Neck No nasal discharge 01/16/2017 Cardiovascular No chest pain/pressure 08/2017 Cardiovascular No dyspnea 01/16/2017 Respiratory No cough 01/16/2017 Respiratory No dyspnea 01/16/2017 Gastrointestinal No abdominal pain 2016 Genitourinary/Nephrology menstrual irregularity 01/16/2017 Dermatologic No rash 01/16/2017 Neurologic No alteration of consciousness 01/16/2017 Neurologic No mental status change 2016 Constitutional No recent illness 2016 Constitutional No chills 09/09/2016 Constitutional No fatigue 09/09/2016 Constitutional No fever 09/09/2016 Eyes No blindness 09/09/2016 Eyes No vision change 09/09/2016 Ears/Nose/Throat/Neck No dizziness 2016 Ears/Nose/Throat/Neck No headache 2016 Cardiovascular No chest pain/pressure 11/2016 Cardiovascular No near-syncope/dizziness 09/09/2016 Cardiovascular No palpitations 2016 Respiratory No chest congestion 2016 Respiratory No cough 09/09/2016 Gastrointestinal No abdominal pain 2016 Gastrointestinal No constipation 2016 Gastrointestinal No diarrhea 09/09/2016 Gastrointestinal No nausea 09/09/2016 Gastrointestinal No vomiting 09/09/2016 Genitourinary/Nephrology No dysuria 09/09 Genitourinary/Nephrology menstrual irregularity 09/09/2016 Musculoskeletal No stiffness 09/09/2016 Musculoskeletal No swelling 09/09/2016 Musculoskeletal No muscle weakness 2016 Musculoskeletal No myalgias 09/09/2016 Dermatologic No rash 09/09/2016 Dermatologic No scar 09/09/2016 Neurologic No alteration of consciousness 09/09/2016 Psychiatric No anxiety 09/09/2016 Psychiatric No depression 09/09/2016 Constitutional No recent illness 2014 Constitutional No fatigue 07/16/2015 Cardiovascular No chest pain/pressure 05/2015 Cardiovascular No fatigue 07/16/2015 Respiratory No cough 07/16/2015 Dermatologic sores 07/16/2015 Psychiatric No anxiety 07/16/2015 Psychiatric No depression 07/16/2015 Constitutional No recent illness 2014 Constitutional No fatigue 06/19/2015 Psychiatric No anxiety 06/19/2015 Psychiatric No depression 06/19/2015 Respiratory No cough 06/19/2015 Cardiovascular No chest pain/pressure Cardiovascular No fatigue 06/19/2015 Musculoskeletal bone pain 06/19/2015 Dermatologic sores 06/19/2015 Constitutional No chills 02/08/2015 Constitutional No fatigue 02/08/2015 Constitutional No fever 02/08/2015 Constitutional No recent illness 2014 Ears/Nose/Throat/Neck No dizziness 2014 Ears/Nose/Throat/Neck No headache 2014 Cardiovascular No chest pain/pressure 12/2014 Cardiovascular No near-syncope/dizziness 02/08/2015 Cardiovascular No palpitations 2014 Respiratory No chest congestion 2014 Respiratory No cough 02/08/2015 Gastrointestinal No abdominal pain 2014 Gastrointestinal No constipation 2014 Gastrointestinal No diarrhea 02/08/2015 Gastrointestinal No nausea 02/08/2015 Gastrointestinal No vomiting 02/08/2015 Genitourinary/Nephrology No dysuria 02/08 Neurologic No alteration of consciousness 02/08/2015 Psychiatric No anxiety 02/08/2015 Psychiatric No depression 02/08/2015 Dermatologic No rash 02/08/2015 Dermatologic No scar 02/08/2015 Musculoskeletal No stiffness 02/08/2015 Musculoskeletal No swelling 02/08/2015 Musculoskeletal No muscle weakness 2014 Musculoskeletal No myalgias 02/08/2015 Genitourinary/Nephrology menstrual irregularity 02/08/2015 Eyes No blindness 02/08/2015 Eyes No vision change 02/08/2015 Physical Exam Exam Name System Name Item Name Status Result Effective Dates Notes Full Exam - General 1994 Constitutional general appearance Overall: well developed 06/29/2018 None Full Exam - General 1994 Constitutional general appearance Overall: in no acute distress 06/29/2018 None Full Exam - General 1994 Constitutional general appearance Overall: well nourished 06/29/2018 None Full Exam - General 1994 Eyes conjunctiva /eyelids Overall: conjunctiva clear 06/29/2018 None Full Exam - General 1994 Eyes conjunctiva /eyelids Overall: eyelids normal 06/29/2018 None Full Exam - General 1994 Ears/Nose/Throat otoscopic exam Overall: external auditory canals clear 06/29/2018 None Full Exam - General 1994 Ears/Nose/Throat otoscopic exam Overall: tympanic membranes clear 06/29/2018 None Full Exam - General 1994 Ears/Nose/Throat lips/teeth/gingiva Overall: benign lips 06/29/2018 None Full Exam - General 1994 Ears/Nose/Throat oral cavity/pharynx/larynx Overall: oral mucosa clear 06/29/2018 None Full Exam - General 1994 Ears/Nose/Throat oral cavity/pharynx/larynx Overall: oropharyngeal mucosa clear 06/29/2018 None Full Exam - General 1994 Respiratory auscultation Overall: breath sounds clear bilaterally 06/29/2018 None Full Exam - General 1994 Respiratory respiratory effort/rhythm Overall: no retractions 06/29/2018 None Full Exam - General 1994 Respiratory respiratory effort/rhythm Overall: normal rate 06/29/2018 None Full Exam - General 1994 Cardiovascular auscultation of heart Overall: regular rate 06/29/2018 None Full Exam - General 1994 Cardiovascular auscultation of heart Overall: normal heart sounds 06/29/2018 None Full Exam - General 1994 Abdomen abdominal exam Overall: no tenderness 06/29/2018 None Full Exam - General 1994 Abdomen abdominal exam Overall: normal bowel sounds 06/29/2018 None Full Exam - General 1994 Musculoskeletal gait and station Overall: normal gait 06/29/2018 None Full Exam - General 1994 Musculoskeletal gait and station Overall: normal station 06/29/2018 None Full Exam - General 1994 Musculoskeletal head and neck Overall: head atraumatic 06/29/2018 None Full Exam - General 1994 Neurologic cranial nerves Overall: crainial nerves 2 - 12 grossly intact 06/29/2018 None Full Exam - General 1994 Psychiatric orientation/consciousness Overall: oriented to person, place and time 06/29/2018 None Full Exam - General 1994 Psychiatric mood and affect Overall: normal mood and affect 06/29/2018 None Full Exam - General 1994 Psychiatric appearance Overall: well-groomed, good eye contact 06/29/2018 None Full Exam - General 1994 Constitutional general appearance Overall: well developed 07/28/2017 None Full Exam - General 1994 Constitutional general appearance Overall: in no acute distress 07/28/2017 None Full Exam - General 1994 Constitutional general appearance Overall: well nourished 07/28/2017 None Full Exam - General 1994 Eyes conjunctiva /eyelids Overall: conjunctiva clear 07/28/2017 None Full Exam - General 1994 Eyes conjunctiva /eyelids Overall: eyelids normal 07/28/2017 None Full Exam - General 1994 Ears/Nose/Throat otoscopic exam Overall: external auditory canals clear 07/28/2017 None Full Exam - General 1994 Ears/Nose/Throat otoscopic exam Overall: tympanic membranes clear 07/28/2017 None Full Exam - General 1994 Ears/Nose/Throat lips/teeth/gingiva Overall: benign lips 07/28/2017 None Full Exam - General 1994 Ears/Nose/Throat oral cavity/pharynx/larynx Overall: oral mucosa clear 07/28/2017 None Full Exam - General 1994 Ears/Nose/Throat oral cavity/pharynx/larynx Overall: oropharyngeal mucosa clear 07/28/2017 None Full Exam - General 1994 Respiratory auscultation Overall: breath sounds clear bilaterally 07/28/2017 None Full Exam - General 1994 Respiratory respiratory effort/rhythm Overall: no retractions 07/28/2017 None Full Exam - General 1994 Respiratory respiratory effort/rhythm Overall: normal rate 07/28/2017 None Full Exam - General 1994 Cardiovascular auscultation of heart Overall: regular rate 07/28/2017 None Full Exam - General 1994 Cardiovascular auscultation of heart Overall: normal heart sounds 07/28/2017 None Full Exam - General 1994 Abdomen abdominal exam Overall: no tenderness 07/28/2017 None Full Exam - General 1994 Abdomen abdominal exam Overall: normal bowel sounds 07/28/2017 None Full Exam - General 1994 Musculoskeletal gait and station Overall: normal gait 07/28/2017 None Full Exam - General 1994 Musculoskeletal gait and station Overall: normal station 07/28/2017 None Full Exam - General 1994 Musculoskeletal head and neck Overall: head atraumatic 07/28/2017 None Full Exam - General 1994 Neurologic cranial nerves Overall: crainial nerves 2 - 12 grossly intact 07/28/2017 None Full Exam - General 1994 Psychiatric orientation/consciousness Overall: oriented to person, place and time 07/28/2017 None Full Exam - General 1994 Psychiatric mood and affect Overall: normal mood and affect 07/28/2017 None Full Exam - General 1994 Psychiatric appearance Overall: well-groomed, good eye contact 07/28/2017 None Full Exam - Genitourinary/Female Constitutional general appearance Overall: well nourished 03/18/2017 None Full Exam - Genitourinary/Female Constitutional general appearance Overall: well developed 03/18/2017 None Full Exam - Genitourinary/Female Constitutional general appearance Overall: in no acute distress 03/18/2017 None Full Exam - Genitourinary/Female Eyes conjunctiva/eyelids Overall: conjunctiva clear 03/18/2017 None Full Exam - Genitourinary/Female Eyes pupils and irises Overall: pupils equal, round, reactive to light and accomodation 03/18/2017 None Full Exam - Genitourinary/Female Ears/Nose/Throat otoscopic exam Overall: external auditory canals clear 03/18/2017 None Full Exam - Genitourinary/Female Ears/Nose/Throat otoscopic exam Overall: tympanic membranes clear 03/18/2017 None Full Exam - Genitourinary/Female Ears/Nose/Throat oral cavity/pharynx/larynx Overall: oral mucosa clear 03/18/2017 None Full Exam - Genitourinary/Female Neck thyroid Overall: normal size 03/18/2017 None Full Exam - Genitourinary/Female Neck thyroid Overall: normal consistency 03/18/2017 None Full Exam - Genitourinary/Female Neck inspection of neck Overall: normal size 03/18/2017 None Full Exam - Genitourinary/Female Respiratory auscultation Overall: breath sounds clear bilaterally 03/18/2017 None Full Exam - Genitourinary/Female Respiratory respiratory effort/rhythm Overall: no retractions 03/18/2017 None Full Exam - Genitourinary/Female Respiratory respiratory effort/rhythm Overall: normal rate 03/18/2017 None Full Exam - Genitourinary/Female Cardiovascular auscultation of heart Overall: regular rate 03/18/2017 None Full Exam - Genitourinary/Female Cardiovascular auscultation of heart Overall: normal heart sounds 03/18/2017 None Full Exam - Genitourinary/Female Cardiovascular auscultation of heart Overall: no murmurs 03/18/2017 None Full Exam - Genitourinary/Female Chest/Breast breast inspection and palpation Overall: normal chest shape 03/18/2017 None Full Exam - Genitourinary/Female Abdomen abdominal exam Overall: non tender, non distended 03/18/2017 None Full Exam - Genitourinary/Female Abdomen abdominal exam Overall: normal bowel sounds 03/18/2017 None Full Exam - Genitourinary/Female Abdomen abdominal exam Overall: no mass lesions 03/18/2017 None Full Exam - Genitourinary/Female Genitourinary breast inspection & palpation Overall: breasts symmetric and without lesions 03/18/2017 None Full Exam - Genitourinary/Female Genitourinary breast inspection & palpation Overall: breasts non-tender, no mass lesions 03/18/2017 None Full Exam - Genitourinary/Female Genitourinary breast inspection & palpation Overall: no nipple discharge 03/18/2017 None Full Exam - Genitourinary/Female Genitourinary external genitalia Overall: normal hair distribution 03/18/2017 None Full Exam - Genitourinary/Female Genitourinary external genitalia Overall: no discharge 03/18/2017 None Full Exam - Genitourinary/Female Genitourinary external genitalia Overall: no lesions 03/18/2017 None Full Exam - Genitourinary/Female Genitourinary bladder Overall: no tenderness 03/18/2017 None Full Exam - Genitourinary/Female Genitourinary bladder Overall: no mass lesions 03/18/2017 None Full Exam - Genitourinary/Female Genitourinary vagina Overall: no discharge 03/18/2017 None Full Exam - Genitourinary/Female Genitourinary vagina Overall: no lesions 03/18/2017 None Full Exam - Genitourinary/Female Genitourinary vagina Overall: normal tone 03/18/2017 None Full Exam - Genitourinary/Female Genitourinary vagina Overall: normal pelvic support 03/18/2017 None Full Exam - Genitourinary/Female Genitourinary vagina Introitus: normal appearance 03/18/2017 None Full Exam - Genitourinary/Female Genitourinary cervix Inspection: normal os 03/18/2017 None Full Exam - Genitourinary/Female Genitourinary uterus Overall: normal size 03/18/2017 None Full Exam - Genitourinary/Female Genitourinary uterus Overall: normal contour 03/18/2017 None Full Exam - Genitourinary/Female Genitourinary uterus Overall: normal shape 03/18/2017 None Full Exam - Genitourinary/Female Genitourinary uterus Overall: normal mobility 03/18/2017 None Full Exam - Genitourinary/Female Genitourinary uterus Overall: non tender 03/18/2017 None Full Exam - Genitourinary/Female Genitourinary uterus Overall: no mass 03/18/2017 None Full Exam - Genitourinary/Female Lymphatic inspection and palpation of nodes Overall: anterior cervical chain benign 03/18/2017 None Full Exam - Genitourinary/Female Lymphatic inspection and palpation of nodes Overall: posterior cervical chain benign 03/18/2017 None Full Exam - Genitourinary/Female Musculoskeletal head and neck Overall: head atraumatic 03/18/2017 None Full Exam - Genitourinary/Female Integument inspection and palpation of skin Overall: no rash, lesions 03/18/2017 None Full Exam - Genitourinary/Female Integument inspection and palpation of skin Overall: no induration, no tenderness 03/18/2017 None Full Exam - Genitourinary/Female Neurologic mood and affect Overall: normal mood 03/18/2017 None Full Exam - Genitourinary/Female Neurologic mood and affect Overall: normal affect 03/18/2017 None Full Exam - Genitourinary/Female Psychiatric orientation/consciousness Overall: oriented to person, place and time 03/18/2017 None Full Exam - General 1994 Constitutional general appearance Overall: well developed 01/16/2017 None Full Exam - General 1994 Constitutional general appearance Overall: in no acute distress 01/16/2017 None Full Exam - General 1994 Constitutional general appearance Overall: well nourished 01/16/2017 None Full Exam - General 1994 Eyes conjunctiva /eyelids Overall: conjunctiva clear 01/16/2017 None Full Exam - General 1994 Eyes conjunctiva /eyelids Overall: eyelids normal 01/16/2017 None Full Exam - General 1994 Ears/Nose/Throat lips/teeth/gingiva Overall: benign lips 01/16/2017 None Full Exam - General 1994 Ears/Nose/Throat oral cavity/pharynx/larynx Overall: oral mucosa clear 01/16/2017 None Full Exam - General 1994 Ears/Nose/Throat oral cavity/pharynx/larynx Overall: oropharyngeal mucosa clear 01/16/2017 None Full Exam - General 1994 Ears/Nose/Throat otoscopic exam Overall: external auditory canals clear 01/16/2017 None Full Exam - General 1994 Ears/Nose/Throat otoscopic exam Overall: tympanic membranes clear 01/16/2017 None Full Exam - General 1994 Respiratory auscultation Overall: breath sounds clear bilaterally 01/16/2017 None Full Exam - General 1994 Respiratory respiratory effort/rhythm Overall: no retractions 01/16/2017 None Full Exam - General 1994 Respiratory respiratory effort/rhythm Overall: normal rate 01/16/2017 None Full Exam - General 1994 Cardiovascular auscultation of heart Overall: regular rate 01/16/2017 None Full Exam - General 1994 Cardiovascular auscultation of heart Overall: normal heart sounds 01/16/2017 None Full Exam - General 1994 Musculoskeletal gait and station Overall: normal gait 01/16/2017 None Full Exam - General 1994 Musculoskeletal gait and station Overall: normal station 01/16/2017 None Full Exam - General 1994 Musculoskeletal head and neck Overall: head atraumatic 01/16/2017 None Full Exam - General 1994 Abdomen abdominal exam Overall: no tenderness 01/16/2017 None Full Exam - General 1994 Abdomen abdominal exam Overall: normal bowel sounds 01/16/2017 None Full Exam - General 1994 Neurologic cranial nerves Overall: crainial nerves 2 - 12 grossly intact 01/16/2017 None Full Exam - General 1994 Psychiatric orientation/consciousness Overall: oriented to person, place and time 01/16/2017 None Full Exam - General 1994 Psychiatric mood and affect Overall: normal mood and affect 01/16/2017 None Full Exam - General 1994 Psychiatric appearance Overall: well-groomed, good eye contact 01/16/2017 None Full Exam - General 1994 Constitutional general appearance Development: well developed 09/09/2016 None Full Exam - General 1994 Constitutional general appearance Development: appears stated age 0109/09/2016 None Full Exam - General 1994 Constitutional general appearance Hygiene/Attention to Grooming: good hygiene 09/09/2016 None Full Exam - General 1994 Eyes conjunctiva /eyelids Overall: conjunctiva clear 09/09/2016 None Full Exam - General 1994 Eyes conjunctiva /eyelids Overall: cornea clear 09/09/2016 None Full Exam - General 1994 Eyes conjunctiva /eyelids Overall: eyelids normal 09/09/2016 None Full Exam - General 1994 Eyes pupils and irises Overall: pupils equal, round, reactive to light and accomodation 09/09/2016 None Full Exam - General 1994 Ears/Nose/Throat otoscopic exam Overall: external auditory canals clear 09/09/2016 None Full Exam - General 1994 Ears/Nose/Throat otoscopic exam Overall: tympanic membranes clear 09/09/2016 None Full Exam - General 1994 Ears/Nose/Throat lips/teeth/gingiva Overall: benign lips 09/09/2016 None Full Exam - General 1994 Ears/Nose/Throat lips/teeth/gingiva Overall: normal dentition 09/09/2016 None Full Exam - General 1995 Ears/Nose/Throat oral cavity/pharynx/larynx Overall: oral mucosa clear 09/09/2016 None Full Exam - General 1994 Ears/Nose/Throat oral cavity/pharynx/larynx Overall: oropharyngeal mucosa clear 09/09/2016 None Full Exam - General 1995 Ears/Nose/Throat oral cavity/pharynx/larynx Overall: hypopharynx benign 09/09/2016 None Full Exam - General 1994 Ears/Nose/Throat oral cavity/pharynx/larynx Overall: no masses 09/09/2016 None Full Exam - General 1994 Neck thyroid Size: enlarged gland 11/2016 None Full Exam - General 1994 Neck thyroid Palpation: nontender 11/2016 None Full Exam - General 1994 Respiratory auscultation Overall: breath sounds clear bilaterally 09/09/2016 None Full Exam - General 1994 Respiratory respiratory effort/rhythm Overall: no retractions 09/09/2016 None Full Exam - General 1994 Respiratory respiratory effort/rhythm Overall: normal rate 09/09/2016 None Full Exam - General 1994 Cardiovascular extremities Overall: no clubbing 09/09/2016 None Full Exam - General 1994 Cardiovascular auscultation of heart Overall: regular rate 09/09/2016 None Full Exam - General 1994 Cardiovascular auscultation of heart Overall: normal heart sounds 09/09/2016 None Full Exam - General 1994 Abdomen abdominal exam Overall: no tenderness 09/09/2016 None Full Exam - General 1994 Abdomen abdominal exam Overall: normal bowel sounds 09/09/2016 None Full Exam - General 1994 Lymphatic neck nodes Overall: anterior cervical chain benign 09/09/2016 None Full Exam - General 1994 Lymphatic neck nodes Overall: posterior cervical chain benign 09/09/2016 None Full Exam - General 1994 Musculoskeletal spine, ribs and pelvis Overall: spine benign 09/09/2016 None Full Exam - General 1994 Musculoskeletal spine, ribs and pelvis Overall: sacroiliac joint benign 09/09/2016 None Full Exam - General 1994 Musculoskeletal spine, ribs and pelvis Overall: good posture 09/09/2016 None Full Exam - General 1994 Musculoskeletal gait and station Overall: normal gait 09/09/2016 None Full Exam - General 1994 Musculoskeletal gait and station Overall: normal station 09/09/2016 None Full Exam - General 1994 Musculoskeletal head and neck Overall: head atraumatic 09/09/2016 None Full Exam - General 1994 Musculoskeletal head and neck Overall: cervical spine benign 09/09/2016 None Full Exam - General 1994 Integument inspection of skin Overall: few scattered moles, no gross abnormalities 09/09/2016 None Full Exam - General 1994 Neurologic deep tendon reflexes Overall: deep tendon reflexes intact 09/09/2016 None Full Exam - General 1994 Neurologic cranial nerves Overall: crainial nerves 2 - 12 grossly intact 09/09/2016 None Full Exam - General 1994 Psychiatric orientation/consciousness Overall: oriented to person, place and time 09/09/2016 None Full Exam - General 1994 Psychiatric mood and affect Overall: normal mood and affect 09/09/2016 None Full Exam - General 1994 Constitutional general appearance Overall: well developed 07/16/2015 None Full Exam - General 1994 Constitutional general appearance Overall: in no acute distress 07/16/2015 None Full Exam - General 1994 Constitutional general appearance Overall: well nourished 07/16/2015 None Full Exam - General 1994 Integument inspection of skin Dermatitis: mole 07/16/2015 with irritated base on left lower cheek, middle of chest with wide base, irritated by shirt collar, and below bra- line middle of abdomen - all three lesions were treated with cryotherapy x 4 on each lesion then dressed with neosporin Full Exam - General 1994 Psychiatric orientation/consciousness Overall: oriented to person, place and time 07/16/2015 None Full Exam - General 1994 Constitutional general appearance Overall: well nourished 06/19/2015 None Full Exam - General 1994 Constitutional general appearance Overall: well developed 06/19/2015 None Full Exam - General 1994 Constitutional general appearance Overall: in no acute distress 06/19/2015 None Full Exam - General 1994 Psychiatric orientation/consciousness Overall: oriented to person, place and time 06/19/2015 None Full Exam - General 1994 Integument inspection of skin Dermatitis: mole 06/19/2015 with irritated base on left lower cheek, middle of chest with wide base, irritated by shirt collar, and below bra- line middle of abdomen - all three lesions were treated with cryotherapy x 4 on each lesion then dressed with neosporin Full Exam - General 1994 Constitutional general appearance Development: appears stated age 0602/08/2015 None Full Exam - General 1994 Constitutional general appearance Development: well developed 02/08/2015 None Full Exam - General 1994 Constitutional general appearance Hygiene/Attention to Grooming: good hygiene 02/08/2015 None Full Exam - General 1994 Eyes conjunctiva /eyelids Overall: conjunctiva clear 02/08/2015 None Full Exam - General 1994 Eyes conjunctiva /eyelids Overall: cornea clear 02/08/2015 None Full Exam - General 1994 Eyes conjunctiva /eyelids Overall: eyelids normal 02/08/2015 None Full Exam - General 1994 Eyes pupils and irises Overall: pupils equal, round, reactive to light and accomodation 02/08/2015 None Full Exam - General 1994 Ears/Nose/Throat otoscopic exam Overall: external auditory canals clear 02/08/2015 None Full Exam - General 1994 Ears/Nose/Throat otoscopic exam Overall: tympanic membranes clear 02/08/2015 None Full Exam - General 1994 Ears/Nose/Throat lips/teeth/gingiva Overall: benign lips 02/08/2015 None Full Exam - General 1994 Ears/Nose/Throat lips/teeth/gingiva Overall: normal dentition 02/08/2015 None Full Exam - General 1994 Ears/Nose/Throat oral cavity/pharynx/larynx Overall: hypopharynx benign 02/08/2015 None Full Exam - General 1994 Ears/Nose/Throat oral cavity/pharynx/larynx Overall: no masses 02/08/2015 None Full Exam - General 1994 Ears/Nose/Throat oral cavity/pharynx/larynx Overall: oral mucosa clear 02/08/2015 None Full Exam - General 1994 Ears/Nose/Throat oral cavity/pharynx/larynx Overall: oropharyngeal mucosa clear 02/08/2015 None Full Exam - General 1994 Respiratory auscultation Overall: breath sounds clear bilaterally 02/08/2015 None Full Exam - General 1994 Respiratory respiratory effort/rhythm Overall: no retractions 02/08/2015 None Full Exam - General 1994 Respiratory respiratory effort/rhythm Overall: normal rate 02/08/2015 None Full Exam - General 1994 Cardiovascular extremities Overall: no clubbing 02/08/2015 None Full Exam - General 1994 Cardiovascular auscultation of heart Overall: normal heart sounds 02/08/2015 None Full Exam - General 1994 Cardiovascular auscultation of heart Overall: regular rate 02/08/2015 None Full Exam - General 1994 Abdomen abdominal exam Overall: no tenderness 02/08/2015 None Full Exam - General 1994 Abdomen abdominal exam Overall: normal bowel sounds 02/08/2015 None Full Exam - General 1994 Integument inspection of skin Overall: few scattered moles, no gross abnormalities 02/08/2015 None Full Exam - General 1994 Neurologic deep tendon reflexes Overall: deep tendon reflexes intact 02/08/2015 None Full Exam - General 1994 Neurologic cranial nerves Overall: crainial nerves 2 - 12 grossly intact 02/08/2015 None Full Exam - General 1994 Psychiatric orientation/consciousness Overall: oriented to person, place and time 02/08/2015 None Full Exam - General 1994 Psychiatric mood and affect Overall: normal mood and affect 02/08/2015 None Full Exam - General 1994 Lymphatic neck nodes Overall: anterior cervical chain benign 02/08/2015 None Full Exam - General 1994 Lymphatic neck nodes Overall: posterior cervical chain benign 02/08/2015 None Full Exam - General 1994 Musculoskeletal head and neck Overall: cervical spine benign 02/08/2015 None Full Exam - General 1994 Musculoskeletal head and neck Overall: head atraumatic 02/08/2015 None Full Exam - General 1994 Musculoskeletal spine, ribs and pelvis Overall: good posture 02/08/2015 None Full Exam - General 1994 Musculoskeletal spine, ribs and pelvis Overall: sacroiliac joint benign 02/08/2015 None Full Exam - General 1994 Musculoskeletal spine, ribs and pelvis Overall: spine benign 02/08/2015 None Full Exam - General 1994 Musculoskeletal gait and station Overall: normal station 02/08/2015 None Full Exam - General 1994 Musculoskeletal gait and station Overall: normal gait 02/08/2015 None Full Exam - General 1994 Neck thyroid Palpation: nontender 12/2014 None Full Exam - General 1994 Neck thyroid Size: enlarged gland 12/2014 None Procedures Procedure Codes Date DESTRUCT PREMALG LESION CPT-4: 22088 06/19/2015 DESTRUCT PREMALG LES 2-14 CPT-4: 55767 06/19/2015 ROUTINE VENIPUNCTURE CPT-4: 10144 02/08/2015 Vital Signs Date Vital 06/29/2018 Blood Pressure 1: 100/60 Code : 8480-6 BMI: 22.8 Code : 13727-9 Heart Rate 1 : 69 bpm Height: 5'10" SpO2: 98% Weight: 159 lbs 07/28/2017 Blood Pressure 1: 110/76 Code : 8480-6 BMI: 23.1 Code : 55283-7 Heart Rate 1 : 78 bpm Height: 5'10" SpO2: 98% Weight: 161 lbs 03/18/2017 Blood Pressure 1: 120/70 Code : 8480-6 BMI: 23.1 Code : 29956-5 Heart Rate 1 : 90 bpm Height: 5'10" SpO2: 94% Weight: 161 lbs 01/16/2017 Blood Pressure 1: 126/80 Code : 8480-6 BMI: 23.2 Code : 93163-6 Heart Rate 1 : 80 bpm Height: 5'10" SpO2: 98% Weight: 162 lbs 09/09/2016 Blood Pressure 1: 110/68 Code : 8480-6 BMI: 23.2 Code : 03555-2 Heart Rate 1 : 106 bpm Height: 5'10 " SpO2: 98% Weight: 162 lbs 07/16/2015 Blood Pressure 1: 118/70 Code : 8480-6 BMI: 23.1 Code : 41936-0 Heart Rate 1 : 74 bpm Height: 5'10" Weight: 161 lbs 06/19/2015 Blood Pressure 1: 118/70 Code : 8480-6 BMI: 23.0 Code : 83612-3 Heart Rate 1 : 73 bpm Height: 5'10" SpO2: 99% Weight: 160 lbs 02/08/2015 Blood Pressure 1: 128/68 Code : 8480-6 BMI: 23.1 Code : 00029-1 Heart Rate 1 : 70 bpm Height: 5'10" SpO2: 98% Weight: 161 lbs Functional Status No Functional Status data History of Present Illness Symptom Name Status Result Effective Date Notes well woman exam (40-65 years) Nutrition and Exercise normal weight 06/29/2018 None well woman exam (40-65 years) Pap Smear last normal performed on 03-18-2017 06/29/2018 None well woman exam (40-65 years) Control regular use 06/29/2018 None well woman exam (40-65 years) Lifestyle regular seatbelt use 06/29/2018 None well woman exam (40-65 years) Lifestyle normal sleep patterns 06/29/2018 None well woman exam (40-65 years) Lifestyle normal amount of stress 06/29/2018 None well woman exam (40-65 years) Nutrition and Exercise minimal exercise 06/29/2018 None well woman exam (40-65 years) Control oral contraceptives 06/29/2018 None well woman exam (40-65 years) Menstrual History amenorrhea 06/29/2018 skips placebo pills well woman exam (40-65 years) Health Guidance baseline mammogram 06/29/2018 None well woman exam (40-65 years) Health Guidance control options 06/29/2018 None abdominal pain Quality acute 07/28/2017 None abdominal pain Quality sharp 07/28/2017 None abdominal pain Onset and Resolution sudden in onset 07/28/2017 None abdominal pain Onset and Resolution resolved 07/28/2017 None abdominal pain Onset of Symptom 3 days ago 07/28/2017 None abdominal pain Limitation on Activities is incapacitating 07/28/2017 None abdominal pain Triggers no known associated factors 07/28/2017 None abdominal pain Pertinent Findings Denies fever 07/28/2017 None abdominal pain Pertinent Findings nausea 07/28/2017 None abdominal pain Pertinent Findings vomiting 07/28/2017 x2 abdominal pain Location in the epigastric area 07/28/2017 None well woman exam (40-65 years) Pap Smear last normal performed on approx 3 years ago 03/18/2017 Dr. Collins performed last pap well woman exam (40-65 years) Menstrual History irregular menses 03/18/2017 None well woman exam (40-65 years) Menstrual History heavy flow 03/18/2017 hourly pad changes on 2-3 day of cycle well woman exam (40-65 years) Control none 03/18/2017 None well woman exam (40-65 years) Nutrition and Exercise normal weight 03/18/2017 None well woman exam (40-65 years) Health Guidance self-breast exam 03/18/2017 None well woman exam (40-65 years) Sexual Activity experiences sexual satisfaction 03/18/2017 None menstrual irregularity Onset and Resolution sudden in onset 01/16/2017 None menstrual irregularity Onset of Symptom 2 days ago 01/16/2017 None menstrual irregularity Pertinent Findings Denies chills 01/16/2017 None menstrual irregularity Pertinent Findings Denies fever 01/16/2017 None office procedure Procedure to be performed cryosurgery 07/16/2015 None mole check Location-Head/Neck on the left cheek 06/19/2015 None mole check Location-Trunk on the upper chest 06/19/2015 None mole check Color brown 06/19/2015 left cheek mole check Color flesh-colored 06/19/2015 chest, under left eye mole check Location-Trunk on the upper abdomen 06/19/2015 None mole check Quality not changing 06/19/2015 None bone pain Quality dull 06/19/2015 None bone pain Quality aching 06/19/2015 None bone pain Quality worsening 06/19/2015 after sitting bone pain Onset of Symptom 6 months ago 06/19/2015 None bone pain Triggers rest 06/19/2015 None bone pain Pertinent Findings stiffness 06/19/2015 None bone pain Location in the coccyx 06/19/2015 None menstrual irregularity Onset and Resolution ongoing 02/08/2015 None menstrual irregularity Quality worsening 02/08/2015 None menstrual irregularity Limitation on Activities does not limit activities 02/08/2015 None menstrual irregularity Significant Medical Conditions multinodular goiter 02/08/2015 None menstrual irregularity Significant Medical Conditions depression 02/08/2015 None menstrual irregularity Triggers no known associated factors 02/08/2015 None menstrual irregularity Pertinent Findings Denies family history of blood dyscrasia 02/08/2015 None menstrual irregularity Pertinent Findings Denies fever 02/08/2015 None menstrual irregularity Pertinent Findings Denies hirsutism 02/08/2015 None menstrual irregularity Pertinent Findings Denies nausea 02/08/2015 None menstrual irregularity Pertinent Findings Denies pelvic pain 02/08/2015 None Advance Directives No Advance Directive data Encounters Encounter Performer Location Codes Date ([id number]) PREV VISIT EST AGE 40-64 Diagnosis: Encounter for general adult medical examination without abnormal findings[ICD10: Z00.00] [facility] CPT-4: 41321 06/29/2018 ([id number]) 20693 EST. PATIENT, LEVEL IV Diagnosis: Abnormal findings on diagnostic imaging of other specified body structures[ICD10: R93.8] Diagnosis: Polyp of corpus uteri[ICD10: N84.0] Diagnosis: Generalized abdominal pain[ICD10: R10.84] [facility] CPT-4: 64084 07/28/2017 ([id number]) PREV VISIT EST AGE 40-64 Diagnosis: Encounter for gynecological examination (general) (routine) without abnormal findings[ICD10: Z01.419] [facility] CPT-4: 45910 03/18/2017 51411 EST. PATIENT, LEVEL III Diagnosis: Excessive and frequent menstruation with regular cycle[ICD10: N92.0] Alka Salazar [facility] CPT-4: 17658 01/16/2017 ([id number]) PREV VISIT EST AGE 40-64 Diagnosis: Encounter for general adult medical examination without abnormal findings[ICD10: Z00.00] [facility] CPT-4: 84695 09/09/2016 ([id number]) 37312 EST. PATIENT, LEVEL II Diagnosis: Other benign neoplasm of skin of unspecified part of face[ICD10: D23.30] [facility] CPT-4: 52728 2014 ([id number]) 25418 EST. PATIENT, LEVEL III Diagnosis: Sacrococcygeal disorders, not elsewhere classified[ICD10: M53.3] [facility] CPT-4: 42880 06/19/2015 ([id number]) PREV VISIT NEW AGE 40-64 Diagnosis: Routine medical exam[ICD9: V70.0] Diagnosis: Multinodular goiter[ICD9: 241.1] Diagnosis: Nonscarring hair loss[ICD9: 704.09] Diagnosis: Menorrhagia with irregular cycle[ICD9: 626.2] Arlene Alas MD, [facility] CPT-4: 50017 02/08/2015 Plan of Care Planned Activity Notes Codes Status Date Visit Plan: Well Adult - pt was counseled about diet, exercise, and encouraged to follow a heart healthy diet and increase activity level. The patient was instructed to RTC yearly for well adult exams and PRN for acute illnesses. The pt was also instructed to have yearly labs for check of cholesterol, thyroid, chem panel, CBC, and renal functioning. 06/29/2018 Visit Plan: Well Adult - pt was counseled about diet, exercise, and encouraged to follow a heart healthy diet and increase activity level. The patient was instructed to RTC yearly for well adult exams and PRN for acute illnesses. The pt was also instructed to have yearly labs for check of cholesterol, thyroid, chem panel, CBC, and renal functioning. 06/29/2018 Appointment: Shanti Jiménez WPtel: [address] [place], [place] [phone] [place] (15 min) Moderate 06/29/2018 Patient Education: Patient Medication Summary Completed 06/29/2018 Patient Education: Patient Medication Summary Completed 08/10/2017 Visit Plan: Abdominal pain-symptoms resolved-will obtain gallbladder ultrasound to further evaluate gallbladder-continue PPI, low fat diet-call if symptoms return Endometrial thickening on CT scan-will further evaluate with pelvic ultrasound 07/28/2017 Appointment: Shanti Jiménez WPtel: [phone] [place] (15 min) Moderate 07/28/2017 Patient Education: Patient Medication Summary Completed 07/28/2017 Visit Plan: Well Adult Female - exam completed. Pap and breast exam completed. Pt will be called with results of her testing. She was advised to continue with yearly annual exams. Safe sex practices discussed during office visit today. Call if any abnormal gynecologic issues during the next year, otherwise, RTC yearly or prn. Irregular cycles - sample of Lo Loestrin x 3 given to patient - pt to start in March and let us know if her symptoms are not improved. She will be on the medication x6 months total. Check iron level in June - rx given to patient for labs. 03/18/2017 Visit Plan: Well Adult Female - exam completed. Pap and breast exam completed. Pt will be called with results of her testing. She was advised to continue with yearly annual exams. Safe sex practices discussed during office visit today. Call if any abnormal gynecologic issues during the next year, otherwise, RTC yearly or prn. Irregular cycles - sample of Lo Loestrin x 3 given to patient - pt to start in March and let us know if her symptoms are not improved. She will be on the medication x6 months total. Check iron level in June - rx given to patient for labs. 03/18/2017 Patient Education: Patient Medication Summary Completed 03/18/2017 Appointment: Arlene Alas WPtel: [id number] Well Woman 03/05/2017 Patient Education: Patient Medication Summary Completed 02/04/2017 Visit Plan: Heavy periods - Pt states that it has been ongoing for the past 2 days - will check labs, pt is to notify clinic if symptoms do not improve, if they worsen, or with any changes or concerns. 01/16/2017 Appointment: Alka Salazar WPtel: [phone] (30 min) Complex 01/16/2017 Patient Education: Patient Medication Summary Completed 01/16/2017 Care Plan: Free T4 Pending 01/16/2017 Visit Plan: Well Adult - pt was counseled about diet, exercise, and encouraged to follow a heart healthy diet and increase activity level. The patient was instructed to RTC yearly for well adult exams and PRN for acute illnesses. The pt was also instructed to have yearly labs for check of cholesterol, thyroid, chem panel, CBC, and renal functioning. 09/09/2016 Patient Education: Patient Medication Summary Completed 09/09/2016 Visit Plan: Cryotherapy of lesion on face - re treatment of lesions. 07/16/2015 Appointment: Arlene Alas WPtel: [id number] Surgical Procedure 07/16/2015 Patient Education: Patient Medication Summary Completed 07/16/2015 Visit Plan: Nevi treated with cryotherapy - pt to use neosporin on the lesions - call if not resolved completely. Coccygeal pain - recommended pt to use samples of flector patches on the coccyx. 06/19/2015 Appointment: Arlene Alas WPtel: [facility]5 [facility] (15 min) Moderate 06/19/2015 Patient Education: Patient Medication Summary Completed 06/19/2015 Appointment: Arlene Alas WPtel: [address] [place], [place] [id number] (15 min) Moderate 05/31/2015 Visit Plan: Well Adult - pt was counseled about diet, exercise, and encouraged to follow a heart healthy diet and increase activity level. The patient was instructed to RTC yearly for well adult exams and PRN for acute illnesses. The pt was also instructed to have yearly labs for check of cholesterol, thyroid, chem panel, CBC, and renal functioning. Irregular cycle - with heavy cycle - check labs, estrogen, progesterone, lh, fsh, thyroid and will determine need for further treatment. Her LMP january 29 (first day of period) - last day of bleeding - 02/03. She may need control. Thyroid enlargement - recommended pt to have thyroid ultrasound and uptake scan. Her thyroid uptake scan has been increasing and was "upper edge of normal" in 2007. 02/08/2015 Visit Plan: Well Adult - pt was counseled about diet, exercise, and encouraged to follow a heart healthy diet and increase activity level. The patient was instructed to RTC yearly for well adult exams and PRN for acute illnesses. The pt was also instructed to have yearly labs for check of cholesterol, thyroid, chem panel, CBC, and renal functioning. Irregular cycle - with heavy cycle - check labs, estrogen, progesterone, lh, fsh, thyroid and will determine need for further treatment. Her LMP january 29 (first day of period) - last day of bleeding - 02/03. She may need control. Thyroid enlargement - recommended pt to have thyroid ultrasound and uptake scan. Her thyroid uptake scan has been increasing and was "upper edge of normal" in 2007. 02/08/2015 Visit Plan: Well Adult - pt was counseled about diet, exercise, and encouraged to follow a heart healthy diet and increase activity level. The patient was instructed to RTC yearly for well adult exams and PRN for acute illnesses. The pt was also instructed to have yearly labs for check of cholesterol, thyroid, chem panel, CBC, and renal functioning. Irregular cycle - with heavy cycle - check labs, estrogen, progesterone, lh, fsh, thyroid and will determine need for further treatment. Her LMP january 29 (first day of period) - last day of bleeding - 02/03. She may need control. Thyroid enlargement - recommended pt to have thyroid ultrasound and uptake scan. Her thyroid uptake scan has been increasing and was "upper edge of normal" in 2007. 02/08/2015 Visit Plan: Well Adult - pt was counseled about diet, exercise, and encouraged to follow a heart healthy diet and increase activity level. The patient was instructed to RTC yearly for well adult exams and PRN for acute illnesses. The pt was also instructed to have yearly labs for check of cholesterol, thyroid, chem panel, CBC, and renal functioning. Irregular cycle - with heavy cycle - check labs, estrogen, progesterone, lh, fsh, thyroid and will determine need for further treatment. Her LMP january 29 (first day of period) - last day of bleeding - 02/03. She may need control. Thyroid enlargement - recommended pt to have thyroid ultrasound and uptake scan. Her thyroid uptake scan has been increasing and was "upper edge of normal" in 2007. 02/08/2015 Visit Plan: Well Adult - pt was counseled about diet, exercise, and encouraged to follow a heart healthy diet and increase activity level. The patient was instructed to RTC yearly for well adult exams and PRN for acute illnesses. The pt was also instructed to have yearly labs for check of cholesterol, thyroid, chem panel, CBC, and renal functioning. Irregular cycle - with heavy cycle - check labs, estrogen, progesterone, lh, fsh, thyroid and will determine need for further treatment. Her LMP january 29 (first day of period) - last day of bleeding - 02/03. She may need control. Thyroid enlargement - recommended pt to have thyroid ultrasound and uptake scan. Her thyroid uptake scan has been increasing and was "upper edge of normal" in 2007. 02/08/2015 Appointment: Arlene Alas [facility]Ptel[facility] [phone] [facility] [place] [place] (S) New Patient 02/08/2015 Patient Education: Patient Medication Summary Completed 02/08/2015 Patient Education: Hypertension Completed 02/08/2015 Care Plan: T3 FREE Pending 02/08/2015 Care Plan: CBC Pending 02/08/2015 Care Plan: FREE T4 Pending 02/08/2015 Instructions Comment . Well Adult - pt was counseled about diet, exercise, and encouraged to follow a heart healthy diet and increase activity level. The patient was instructed to RTC yearly for well adult exams and PRN for acute illnesses. The pt was also instructed to have yearly labs for check of cholesterol, thyroid, chem panel, CBC, and renal functioning. Irregular cycle - with heavy cycle - check labs, estrogen, progesterone, lh, fsh , thyroid and will determine need for further treatment. Her LMP january 29 ( first day of period) - last day of bleeding - 02/03. She may need control. Thyroid enlargement - recommended pt to have thyroid ultrasound and uptake scan. Her thyroid uptake scan has been increasing and was "upper edge of normal " in 2007. fasting labs in November . Well Adult - pt was counseled about diet, exercise, and encouraged to follow a heart healthy diet and increase activity level. The patient was instructed to RTC yearly for well adult exams and PRN for acute illnesses. The pt was also instructed to have yearly labs for check of cholesterol, thyroid, chem panel, CBC, and renal functioning. . Well Adult Female - exam completed. Pap and breast exam completed. Pt will be called with results of her testing. She was advised to continue with yearly annual exams. Safe sex practices discussed during office visit today. Call if any abnormal gynecologic issues during the next year, otherwise, RTC yearly or prn. Irregular cycles - sample of Lo Loestrin x 3 given to patient - pt to start in March and let us know if her symptoms are not improved. She will be on the medication x6 months total. Check iron level in June - rx given to patient for labs. . Nevi treated with cryotherapy - pt to use neosporin on the lesions - call if not resolved completely. Coccygeal pain - recommended pt to use samples of flector patches on the coccyx. . Well Adult - pt was counseled about diet, exercise, and encouraged to follow a heart healthy diet and increase activity level. The patient was instructed to RTC yearly for well adult exams and PRN for acute illnesses. The pt was also instructed to have yearly labs for check of cholesterol, thyroid, chem panel, CBC, and renal functioning. Irregular cycle - with heavy cycle - check labs, estrogen, progesterone, lh, fsh , thyroid and will determine need for further treatment. Her LMP january 29 ( first day of period) - last day of bleeding - 02/03. She may need control. Thyroid enlargement - recommended pt to have thyroid ultrasound and uptake scan. Her thyroid uptake scan has been increasing and was "upper edge of normal " in 2007. . Well Adult Female - exam completed. Pap and breast exam completed. Pt will be called with results of her testing. She was advised to continue with yearly annual exams. Safe sex practices discussed during office visit today. Call if any abnormal gynecologic issues during the next year, otherwise, RTC yearly or prn. Irregular cycles - sample of Lo Loestrin x 3 given to patient - pt to start in March and let us know if her symptoms are not improved. She will be on the medication x6 months total. Check iron level in June - rx given to patient for labs. pelvic ultrasound gallbladder ultrasound low fat diet call if symptoms return . Abdominal pain-symptoms resolved-will obtain gallbladder ultrasound to further evaluate gallbladder-continue PPI, low fat diet-call if symptoms return Endometrial thickening on CT scan-will further evaluate with pelvic ultrasound . Well Adult - pt was counseled about diet, exercise, and encouraged to follow a heart healthy diet and increase activity level. The patient was instructed to RTC yearly for well adult exams and PRN for acute illnesses. The pt was also instructed to have yearly labs for check of cholesterol, thyroid, chem panel, CBC, and renal functioning. Irregular cycle - with heavy cycle - check labs, estrogen, progesterone, lh, fsh , thyroid and will determine need for further treatment. Her LMP january 29 ( first day of period) - last day of bleeding - 02/03. She may need control. Thyroid enlargement - recommended pt to have thyroid ultrasound and uptake scan. Her thyroid uptake scan has been increasing and was "upper edge of normal " in 2007. . Cryotherapy of lesion on face - re treatment of lesions. . Well Adult - pt was counseled about diet, exercise, and encouraged to follow a heart healthy diet and increase activity level. The patient was instructed to RTC yearly for well adult exams and PRN for acute illnesses. The pt was also instructed to have yearly labs for check of cholesterol, thyroid, chem panel, CBC, and renal functioning. Irregular cycle - with heavy cycle - check labs, estrogen, progesterone, lh, fsh , thyroid and will determine need for further treatment. Her LMP january 29 ( first day of period) - last day of bleeding - 02/03. She may need control. Thyroid enlargement - recommended pt to have thyroid ultrasound and uptake scan. Her thyroid uptake scan has been increasing and was "upper edge of normal " in 2007. . Well Adult - pt was counseled about diet, exercise, and encouraged to follow a heart healthy diet and increase activity level. The patient was instructed to RTC yearly for well adult exams and PRN for acute illnesses. The pt was also instructed to have yearly labs for check of cholesterol, thyroid, chem panel, CBC, and renal functioning. Irregular cycle - with heavy cycle - check labs, estrogen, progesterone, lh, fsh , thyroid and will determine need for further treatment. Her LMP january 29 ( first day of period) - last day of bleeding - 02/03. She may need control. Thyroid enlargement - recommended pt to have thyroid ultrasound and uptake scan. Her thyroid uptake scan has been increasing and was "upper edge of normal " in 2007. fasting labs in November . Well Adult - pt was counseled about diet, exercise, and encouraged to follow a heart healthy diet and increase activity level. The patient was instructed to RTC yearly for well adult exams and PRN for acute illnesses. The pt was also instructed to have yearly labs for check of cholesterol, thyroid, chem panel, CBC, and renal functioning. . Heavy periods - Pt states that it has been ongoing for the past 2 days - will check labs, pt is to notify clinic if symptoms do not improve, if they worsen, or with any changes or concerns. . Well Adult - pt was counseled about diet, exercise, and encouraged to follow a heart healthy diet and increase activity level. The patient was instructed to RTC yearly for well adult exams and PRN for acute illnesses. The pt was also instructed to have yearly labs for check of cholesterol, thyroid, chem panel, CBC, and renal functioning.
--- OUTSIDE RECORDS SUMMARY | 2018-12-03 07:24 | XMS REPORT | CCD ---
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 Name Role Phone PP Unavailable CCM Unavailable Summary Purpose Interface Exchange Insurance Providers Payer name Policy type / Coverage type Covered republican ID Effective Begin Date Effective End Date Blue Cross Blue Shield [facility] Blue Cross/Blue Shield [id number] Unknown Family history Grandmother Diagnosis Age At Onset Diabetes Unknown Mother Diagnosis Age At Onset Cancer Unknown Social History Social History Element Codes Description Effective Dates Marital status Unknown [place] 07/28/2017 Number of children Unknown 3 02/08/[address]: 445321307 Never smoker 02/08/2015 Alcohol history Unknown occasionally drinks alcohol 02/08/[address] Frequency of drinks SNOMED CT: 568014801 1-4 drinks per week 02/08/2015 Allergies, Adverse [...] Instructions Desogen 0.15 mg-0.03 mg tablet RxNorm: 831686 1 Tablet(s) daily TAKE 1 TABLET BY MOUTH ONCE DAILY 06/29/2018 06/23/2019 Active hold until patient calls for reill Desogen 0.15 mg-0.03 mg tablet RxNorm: 764399 Tablet(s) TAKE 1 TABLET BY MOUTH ONCE DAILY 06/24/2018 06/28/2018 Inactive Generic For:*DESOGEN-28 05/03/2018 9:04: 52 AM Desogen 0.15 mg-0.03 mg tablet RxNorm: 126090 TAKE 1 TABLET BY MOUTH ONCE DAILY 05/03/2018 06/23/2018 Inactive Generic For:*DESOGEN-28 05/03/2018 9:04:52 AM Desogen 0.15 mg-0.03 mg tablet RxNorm: 866299 1 Tablet(s) PO daily 08/10/2017 08/09/2017 Inactive Desogen 0.15 mg-0.03 mg tablet RxNorm: 731179 1 Tablet(s) PO daily 08/10/2017 05/02/2018 Inactive Lo Loestrin Fe 1 mg-10 mcg (24)/10 mcg (2) tablet RxNorm: 2624801 1 Tablet(s) PO daily 03/18/2017 06/15/2017 Inactive ferrous sulfate 325 mg (65 mg iron) tablet RxNorm: 543619 1 Tablet(s) PO BID No Start Date 07/27/2017 Inactive sertraline 25 mg tablet RxNorm: 972869 1 Tablet(s) PO daily No Start Date [...] dentition 09/09/2016 None Full Exam - General 1994 Ears/Nose/Throat oral cavity/pharynx/larynx Overall: oral mucosa clear 09/09/2016 None Full Exam - General 1994 Ears/Nose/Throat oral cavity/pharynx/larynx Overall: oropharyngeal mucosa clear 09/09/2016 None Full Exam - General 1994 Ears/Nose/Throat oral cavity/pharynx/larynx Overall: hypopharynx benign 09/09/2016 [...] Procedure Codes Date DESTRUCT PREMALG LESION CPT-4: 47462 06/19/2015 DESTRUCT PREMALG LES 2-14 CPT-4: 51712 06/19/2015 ROUTINE VENIPUNCTURE CPT-4: 60048 02/08/2015 Vital Signs Date Vital 06/29/2018 Blood Pressure 1: 100/60 Code : 8480-6 BMI: 22.8 Code : 45995-1 Heart Rate 1 : 69 bpm Height: 5'10" SpO2: 98% Weight: 159 lbs 07/28/2017 Blood Pressure 1: 110/76 Code : 8480-6 BMI: 23.1 Code : 84015-8 Heart Rate 1 : 78 bpm Height: 5'10" SpO2: 98% Weight: 161 lbs 03/18/2017 Blood Pressure 1: 120/70 Code : 8480-6 BMI: 23.1 Code : 70053-1 Heart Rate 1 : 90 bpm Height: 5'10" SpO2: 94% Weight: 161 lbs 01/16/2017 Blood Pressure 1: 126/80 Code : 8480-6 BMI: 23.2 Code : 02254-1 Heart Rate 1 : 80 bpm Height: 5'10" SpO2: 98% Weight: 162 lbs 09/09/2016 Blood Pressure 1: 110/68 Code : 8480-6 BMI: 23.2 Code : 38409-0 Heart Rate 1 : 106 bpm Height: 5'10 " SpO2: 98% Weight: 162 lbs 07/16/2015 Blood Pressure 1: 118/70 Code : 8480-6 BMI: 23.1 Code : 16615-8 Heart Rate 1 : 74 bpm Height: 5'10" Weight: 161 lbs 06/19/2015 Blood Pressure 1: 118/70 Code : 8480-6 BMI: 23.0 Code : 75325-1 Heart Rate 1 : 73 bpm Height: 5'10" SpO2: 99% Weight: 160 lbs 02/08/2015 Blood Pressure 1: 128/68 Code : 8480-6 BMI: 23.1 Code : 22682-2 Heart Rate 1 : 70 bpm Height: [...] data Encounters Encounter Performer Location Codes Date ([id number]) PREV VISIT EST AGE 40-64 Diagnosis: Encounter for general adult medical examination without abnormal findings[ICD10: Z00.00] [facility] CPT-4: 26481 06/29/2018 ([id number]) 52552 EST. PATIENT, LEVEL IV Diagnosis: Abnormal findings on diagnostic imaging of other specified body structures[ICD10: R93.8] Diagnosis: Polyp of corpus uteri[ICD10: N84.0] Diagnosis: Generalized abdominal pain[ICD10: R10.84] [facility] CPT-4: 64571 07/28/2017 ([id number]) PREV VISIT EST AGE 40-64 Diagnosis: Encounter for gynecological examination (general) (routine) without abnormal findings[ICD10: Z01.419] [facility] CPT-4: 33606 03/18/2017 [id number] EST. PATIENT, LEVEL III Diagnosis: Excessive and frequent menstruation with regular cycle[ICD10: N92.0] [facility] CPT-4: 64405 01/16/2017 ([id number]) PREV VISIT EST AGE 40-64 Diagnosis: Encounter for general adult medical examination without abnormal findings[ICD10: Z00.00] [facility] CPT-4: 62174 09/09/2016 ([id number]) 05576 EST. PATIENT, LEVEL II Diagnosis: Other benign neoplasm of skin of unspecified part of face[ICD10: D23.30] [facility] CPT-4: 33035 2014 ([id number]) 74029 EST. PATIENT, LEVEL III Diagnosis: Sacrococcygeal disorders, not elsewhere classified[ICD10: M53.3] [facility] CPT-4: 20488 06/19/2015 ([id number]) PREV VISIT NEW AGE 40-64 Diagnosis: Routine medical exam[ICD9: V70.0] Diagnosis: Multinodular goiter[ICD9: 241.1] Diagnosis: Nonscarring hair loss[ICD9: 704.09] Diagnosis: Menorrhagia with irregular cycle[ICD9: 626.2] [facility] CPT-4: 02976 02/08/2015 Plan of Care Planned Activity Notes [...] renal functioning. 06/29/2018 Appointment: Shanti Jiménez WPtel: [facility] [place] (15 min) Moderate 06/29/2018 Patient Education: Patient Medication Summary Completed 06/29/2018 Patient Education: Patient Medication Summary Completed 08/10/2017 Visit Plan: Abdominal pain-symptoms resolved-will obtain gallbladder ultrasound to further evaluate gallbladder-continue PPI, low fat diet-call if symptoms return Endometrial thickening on CT scan-will further evaluate with pelvic ultrasound 07/28/2017 Appointment: Shanti Jiménez WPtel: [address] [facility] (15 min) Moderate 07/28/2017 Patient Education: Patient [...] Summary Completed 03/18/2017 Appointment: Arlene Alas WPtel: [facility]5 [facility] Well Woman 03/05/2017 Patient Education: Patient Medication Summary Completed 02/04/2017 Visit Plan: Heavy periods - Pt states that it has been ongoing for the past 2 days - will check labs, pt is to notify clinic if symptoms do not improve, if they worsen, or with any changes or concerns. 01/16/2017 Appointment: Alka Salazar WPtel: [facility]0 [facility] (30 min) Complex 01/16/2017 Patient Education: Patient [...] of lesions. 07/16/2015 Appointment: [phone] [facility] Procedure 07/16/2015 Patient Education: Patient Medication Summary Completed 07/16/2015 Visit Plan: Nevi treated with cryotherapy - pt to use neosporin on the lesions - call if not resolved completely. Coccygeal pain - recommended pt to use samples of flector patches on the coccyx. 06/19/2015 Appointment: Ar[facility] Alas WPtel[phone] [place] (15 min) Moderate 06/19/2015 Patient Education: Patient Medication Summary Completed 06/19/2015 Appointment: [facility] Alas WPtel[phone] [facility] [place] (15 min) Moderate 05/31/2015 Visit Plan: Well [...] in 2007. 02/08/2015 Appointment: Arlene Alas WPtel: [address] [place], [place] [address] [place] (S) New Patient 02/08/2015 Patient Education: Patient Medication Summary Completed 02/08/2015 Patient Education: Hypertension Completed 02/08/2015 Care Plan: T3 FREE Pending 02/08/2015 Care Plan: CBC Pending 02/08/2015 Care Plan: FREE T4 Pending 02/08/2015 Instructions Comment . Cryotherapy of lesion on face - [...] chem panel, CBC, and renal functioning. . Nevi treated with cryotherapy - pt [...] edge of normal " in 2007. . Heavy periods - Pt states that it has been ongoing for the past 2 days - will check labs, pt is to notify clinic if symptoms do not improve, if they worsen, or with any changes or concerns. pelvic ultrasound gallbladder ultrasound low fat diet call if symptoms return . Abdominal pain-symptoms resolved-will obtain gallbladder ultrasound to further evaluate gallbladder-continue PPI, low fat diet-call if symptoms return Endometrial thickening on CT scan-will further evaluate with pelvic ultrasound . Well Adult Female - exam completed. [...] rx given to patient for labs. . Well Adult Female - exam completed. [...] - rx given to patient for labs. fasting labs in November . Well Adult - pt was counseled about diet, exercise, and encouraged to follow a heart healthy diet and increase activity level. The patient was instructed to RTC yearly for well adult exams and PRN for acute illnesses. The pt was also instructed to have yearly labs for check of cholesterol, thyroid, chem panel, CBC, and renal functioning. fasting labs in November . Well Adult [...]
--- OUTSIDE RECORDS SUMMARY | 2018-12-03 07:24 | XMS REPORT | CCD ---
Author Author Arlene Alas Organization [facility] Address [address] [place] [address] Phone Care Team Providers Care Road Crew Member Name Role Phone PP Unavailable CCM Unavailable Summary Purpose Interface Exchange Insurance Providers Payer name Policy type / Coverage type Covered democrat ID Effective Begin Date Effective End Date Blue Cross Blue Shield [facility] Blue Cross/Blue Shield [id number] Unknown Family history Grandmother Diagnosis Age At Onset Diabetes Unknown Mother Diagnosis Age At Onset Cancer Unknown Social History Social History Element Codes Description Effective Dates Marital status Unknown Colt 07/28/2017 Number of children Unknown 3 02/08/[address]: 800131459 Never smoker 02/08/2015 Alcohol history Unknown occasionally drinks alcohol 02/08/2015 Frequency of drinks SNOMED CT: 447536163 1-4 drinks per week 02/08/2015 Allergies, Adverse [...] Start Date Stop Date Status Fill Instructions Diflucan 150 mg tablet RxNorm: 931040 1 Tablet(s) PO daily 04/201807/21/2018 Active Diflucan 150 mg tablet RxNorm: 228065 1 Tablet(s) PO daily 04/201807/14/2018 Inactive Desogen 0.15 mg-0.03 mg tablet RxNorm: 808749 1 Tablet(s) daily TAKE 1 TABLET BY MOUTH ONCE DAILY 06/29/2018 06/23/2019 Active hold until patient calls for reill Desogen 0.15 mg-0.03 mg tablet RxNorm: 772974 Tablet(s) TAKE 1 TABLET BY MOUTH ONCE DAILY 06/24/2018 06/28/2018 Inactive Generic For:*DESOGEN-28 05/03/2018 9:04: 52 AM Desogen 0.15 mg-0.03 mg tablet RxNorm: 386634 TAKE 1 TABLET BY MOUTH ONCE DAILY 05/03/2018 06/23/2018 Inactive Generic For:*DESOGEN-28 05/03/2018 9:04:52 AM Desogen 0.15 mg-0.03 mg tablet RxNorm: 086854 1 Tablet(s) PO daily 08/10/2017 08/09/2017 Inactive Desogen 0.15 mg-0.03 mg tablet RxNorm: 578152 1 Tablet(s) PO daily 08/10/2017 05/02/2018 Inactive Lo Loestrin Fe 1 mg-10 mcg (24)/10 mcg (2) tablet RxNorm: 5008115 1 Tablet(s) PO daily 03/18/2017 06/15/2017 Inactive ferrous sulfate 325 mg (65 mg iron) tablet RxNorm: 956960 1 Tablet(s) PO BID No Start Date 07/27/2017 Inactive sertraline 25 mg tablet RxNorm: 027788 1 Tablet(s) PO daily No Start Date [...] Procedure Codes Date DESTRUCT PREMALG LESION CPT-4: 96603 06/19/2015 DESTRUCT PREMALG LES 2-14 CPT-4: 66085 06/19/2015 ROUTINE VENIPUNCTURE CPT-4: 10204 02/08/2015 Vital Signs Date Vital 06/29/2018 Blood Pressure 1: 100/60 Code : 8480-6 BMI: 22.8 Code : 77609-1 Heart Rate 1 : 69 bpm Height: 5'10" SpO2: 98% Weight: 159 lbs 07/28/2017 Blood Pressure 1: 110/76 Code : 8480-6 BMI: 23.1 Code : 98925-3 Heart Rate 1 : 78 bpm Height: 5'10" SpO2: 98% Weight: 161 lbs 03/18/2017 Blood Pressure 1: 120/70 Code : 8480-6 BMI: 23.1 Code : 24475-2 Heart Rate 1 : 90 bpm Height: 5'10" SpO2: 94% Weight: 161 lbs 01/16/2017 Blood Pressure 1: 126/80 Code : 8480-6 BMI: 23.2 Code : 02066-7 Heart Rate 1 : 80 bpm Height: 5'10" SpO2: 98% Weight: 162 lbs 09/09/2016 Blood Pressure 1: 110/68 Code : 8480-6 BMI: 23.2 Code : 77019-5 Heart Rate 1 : 106 bpm Height: 5'10 " SpO2: 98% Weight: 162 lbs 07/16/2015 Blood Pressure 1: 118/70 Code : 8480-6 BMI: 23.1 Code : 21933-5 Heart Rate 1 : 74 bpm Height: 5'10" Weight: 161 lbs 06/19/2015 Blood Pressure 1: 118/70 Code : 8480-6 BMI: 23.0 Code : 56225-0 Heart Rate 1 : 73 bpm Height: 5'10" SpO2: 99% Weight: 160 lbs 02/08/2015 Blood Pressure 1: 128/68 Code : 8480-6 BMI: 23.1 Code : 48974-4 Heart Rate 1 : 70 bpm Height: [...] data Encounters Encounter Performer Location Codes Date ([id number]) PREV VISIT EST AGE 40-64 Diagnosis: Encounter for general adult medical examination without abnormal findings[ICD10: Z00.00] [facility] CPT-4: 89666 06/29/2018 ([id number]) 02288 EST. PATIENT, LEVEL IV Diagnosis: Abnormal findings on diagnostic imaging of other specified body structures[ICD10: R93.8] Diagnosis: Polyp of corpus uteri[ICD10: N84.0] Diagnosis: Generalized abdominal pain[ICD10: R10.84] [facility] CPT-4: 61740 07/28/2017 ([id number]) PREV VISIT EST AGE 40-64 Diagnosis: Encounter for gynecological examination (general) (routine) without abnormal findings[ICD10: Z01.419] [facility] CPT-4: 79381 03/18/2017 96908 EST. PATIENT, LEVEL III Diagnosis: Excessive and frequent menstruation with regular cycle[ICD10: N92.0] [facility] CPT-4: 84407 01/16/2017 ([id number]) PREV VISIT EST AGE 40-64 Diagnosis: Encounter for general adult medical examination without abnormal findings[ICD10: Z00.00] [facility] CPT-4: 89282 09/09/2016 ([id number]) 08285 EST. PATIENT, LEVEL II Diagnosis: Other benign neoplasm of skin of unspecified part of face[ICD10: D23.30] [facility] CPT-4: 99084 2014 ([id number]) 63818 EST. PATIENT, LEVEL III Diagnosis: Sacrococcygeal disorders, not elsewhere classified[ICD10: M53.3] [facility] CPT-4: 15360 06/19/2015 ([id number]) PREV VISIT NEW AGE 40-64 Diagnosis: Routine medical exam[ICD9: V70.0] Diagnosis: Multinodular goiter[ICD9: 241.1] Diagnosis: Nonscarring hair loss[ICD9: 704.09] Diagnosis: Menorrhagia with irregular cycle[ICD9: 626.2] [facility] CPT-4: 84725 02/08/2015 Plan of Care Planned Activity Notes Codes Status Date Appointment: Shanti Jiménez WPtel: [phone] (15 min) Moderate 06/29/2018 Patient Education: Patient Medication Summary Completed 06/29/2018 Patient Education: Patient Medication Summary Completed 08/10/2017 Appointment: Shanti Jiménez WPtel: [address] [place], [place] [phone] (15 min) Moderate 07/28/2017 Patient Education: Patient Medication Summary Completed 07/28/2017 Patient Education: Patient Medication Summary Completed 03/18/2017 Appointment: Arlene Alas WPtel: [facility]5 [facility] [facility] 03/05/2017 Patient Education: Patient Medication Summary Completed 02/04/2017 Appointment: Alka Salazar WPtel: [facility]5 [facility] [place] (30 min) Complex 01/16/2017 Patient Education: Patient Medication Summary Completed 01/16/2017 Care Plan: Free T4 Pending 01/16/2017 Patient Education: Patient Medication Summary Completed 09/09/2016 Appointment: Arlene [facility]as WPtel: [facility] [facility] 07/16/2015 Patient Education: Patient Medication Summary Completed 07/16/2015 Appointment: Arlene Alas WPtel: [facility] (15 min) Moderate 06/19/2015 Patient Education: Patient Medication Summary Completed 06/19/2015 Appointment: Arlene Alas WPtel: [facility] (15 min) Moderate 05/31/2015 Appointment: Arlene Alas WPtel: [facility] [place] ([place] New Patient 02/08/2015 Patient Education: Patient Medication Summary Completed 02/08/2015 Patient Education: Hypertension Completed 02/08/2015 Care Plan: T3 FREE Pending 02/08/2015 Care Plan: CBC Pending 02/08/2015 Care Plan: FREE T4 Pending 02/08/2015 Instructions No Instructions
--- OUTSIDE RECORDS SUMMARY | 2018-12-03 07:25 | XMS REPORT | CCD ---
Author Author Arlene Alas Organization [facility] Address [address] [place] [address] Phone Care Team Providers Care Bag Presser Name Role Phone PP Unavailable CCM Unavailable Summary Purpose Interface Exchange Insurance Providers Payer name Policy type / Coverage type Covered alliance party ID Effective Begin Date Effective End Date Blue Cross Blue Shield [facility] Blue Cross/Blue Shield [id number] Unknown Family history Grandmother Diagnosis Age At Onset Diabetes Unknown Mother Diagnosis Age At Onset Cancer Unknown Social History Social History Element Codes Description Effective Dates Marital status Unknown Colt 07/28/2017 Number of children Unknown 3 02/08/[address]: 195295021 Never smoker 02/08/2015 Alcohol history Unknown occasionally drinks alcohol 02/08/2015 Frequency of drinks SNOMED CT: 200048895 1-4 drinks per week 02/08/2015 Allergies, Adverse [...] Instructions Desogen 0.15 mg-0.03 mg tablet RxNorm: 288977 1 Tablet(s) daily TAKE 1 TABLET BY MOUTH ONCE DAILY 06/29/2018 06/23/2019 Active hold until patient calls for reill Desogen 0.15 mg-0.03 mg tablet RxNorm: 605742 Tablet(s) TAKE 1 TABLET BY MOUTH ONCE DAILY 06/24/2018 06/28/2018 Inactive Generic For:*DESOGEN-28 05/03/2018 9:04: 52 AM Desogen 0.15 mg-0.03 mg tablet RxNorm: 104322 TAKE 1 TABLET BY MOUTH ONCE DAILY 05/03/2018 06/23/2018 Inactive Generic For:*DESOGEN-28 05/03/2018 9:04:52 AM Desogen 0.15 mg-0.03 mg tablet RxNorm: 463616 1 Tablet(s) PO daily 08/10/2017 08/09/2017 Inactive Desogen 0.15 mg-0.03 mg tablet RxNorm: 826603 1 Tablet(s) PO daily 08/10/2017 05/02/2018 Inactive Lo Loestrin Fe 1 mg-10 mcg (24)/10 mcg (2) tablet RxNorm: 1757817 1 Tablet(s) PO daily 03/18/2017 06/15/2017 Inactive ferrous sulfate 325 mg (65 mg iron) tablet RxNorm: 952690 1 Tablet(s) PO BID No Start Date 07/27/2017 Inactive sertraline 25 mg tablet RxNorm: 347222 1 Tablet(s) PO daily No Start Date [...] Procedure Codes Date DESTRUCT PREMALG LESION CPT-4: 39151 06/19/2015 DESTRUCT PREMALG LES 2-14 CPT-4: 73941 06/19/2015 ROUTINE VENIPUNCTURE CPT-4: 26980 02/08/2015 Vital Signs Date Vital 06/29/2018 Blood Pressure 1: 100/60 Code : 8480-6 BMI: 22.8 Code : 94187-4 Heart Rate 1 : 69 bpm Height: 5'10" SpO2: 98% Weight: 159 lbs 07/28/2017 Blood Pressure 1: 110/76 Code : 8480-6 BMI: 23.1 Code : 08083-5 Heart Rate 1 : 78 bpm Height: 5'10" SpO2: 98% Weight: 161 lbs 03/18/2017 Blood Pressure 1: 120/70 Code : 8480-6 BMI: 23.1 Code : 19254-4 Heart Rate 1 : 90 bpm Height: 5'10" SpO2: 94% Weight: 161 lbs 01/16/2017 Blood Pressure 1: 126/80 Code : 8480-6 BMI: 23.2 Code : 27327-7 Heart Rate 1 : 80 bpm Height: 5'10" SpO2: 98% Weight: 162 lbs 09/09/2016 Blood Pressure 1: 110/68 Code : 8480-6 BMI: 23.2 Code : 82760-0 Heart Rate 1 : 106 bpm Height: 5'10 " SpO2: 98% Weight: 162 lbs 07/16/2015 Blood Pressure 1: 118/70 Code : 8480-6 BMI: 23.1 Code : 25787-8 Heart Rate 1 : 74 bpm Height: 5'10" Weight: 161 lbs 06/19/2015 Blood Pressure 1: 118/70 Code : 8480-6 BMI: 23.0 Code : 21304-5 Heart Rate 1 : 73 bpm Height: 5'10" SpO2: 99% Weight: 160 lbs 02/08/2015 Blood Pressure 1: 128/68 Code : 8480-6 BMI: 23.1 Code : 84099-3 Heart Rate 1 : 70 bpm Height: [...] data Encounters Encounter Performer Location Codes Date ([id number]) PREV VISIT EST AGE 40-64 Diagnosis: Encounter for general adult medical examination without abnormal findings[ICD10: Z00.00] [facility] CPT-4: 34894 06/29/2018 ([id number]) 88356 EST. PATIENT, LEVEL IV Diagnosis: Abnormal findings on diagnostic imaging of other specified body structures[ICD10: R93.8] Diagnosis: Polyp of corpus uteri[ICD10: N84.0] Diagnosis: Generalized abdominal pain[ICD10: R10.84] [facility] CPT-4: 66764 07/28/2017 ([id number]) PREV VISIT EST AGE 40-64 Diagnosis: Encounter for gynecological examination (general) (routine) without abnormal findings[ICD10: Z01.419] [facility] CPT-4: 99007 03/18/2017 [id number] EST. PATIENT, LEVEL III Diagnosis: Excessive and frequent menstruation with regular cycle[ICD10: N92.0] [facility] CPT-4: 21133 01/16/2017 ([id number]) PREV VISIT EST AGE 40-64 Diagnosis: Encounter for general adult medical examination without abnormal findings[ICD10: Z00.00] [facility] CPT-4: 66042 09/09/2016 ([id number]) 32532 EST. PATIENT, LEVEL II Diagnosis: Other benign neoplasm of skin of unspecified part of face[ICD10: D23.30] Arlene Alas MD, [facility] CPT-4: 69790 2014 ([id number]) 28577 EST. PATIENT, LEVEL III Diagnosis: Sacrococcygeal disorders, not elsewhere classified[ICD10: M53.3] [facility], [facility] CPT-4: 70560 06/19/2015 ([id number]) PREV VISIT NEW AGE 40-64 Diagnosis: Routine medical exam[ICD9: V70.0] Diagnosis: Multinodular goiter[ICD9: 241.1] Diagnosis: Nonscarring hair loss[ICD9: 704.09] Diagnosis: Menorrhagia with irregular cycle[ICD9: 626.2] Arlene Alas MD, [facility] CPT-4: 68013 02/08/2015 Plan of Care Planned Activity Notes [...] chem panel, CBC, and renal functioning. 06/29/2018 Patient Education: Patient Medication Summary Completed 06/29/2018 Patient Education: Patient Medication Summary Completed 08/10/2017 Visit Plan: Abdominal pain-symptoms resolved-will obtain gallbladder ultrasound to further evaluate gallbladder-continue PPI, low fat diet-call if symptoms return Endometrial thickening on CT scan-will further evaluate with pelvic ultrasound 07/28/2017 Appointment: [facility] [address] [phone] [place] (15 min) Moderate 07/28/2017 Patient Education: [...] Summary Completed 03/18/2017 Appointment: Arlene Alas WPtel: [address] [place] [address] [facility] 03/05/2017 Patient Education: Patient Medication Summary Completed 02/04/2017 Visit Plan: Heavy periods - Pt states that it has been ongoing for the past 2 days - will check labs, pt is to notify clinic if symptoms do not improve, if they worsen, or with any changes or concerns. 01/16/2017 Appointment: Alka Salazar WPtel: [address] [place] [address] (30 min) Complex 01/16/2017 Patient Education: Patient [...] of lesions. 07/16/2015 Appointment: Arlene Alas WPtel: [address] [place] [address] Surgical Procedure 07/16/2015 Patient Education: Patient Medication Summary Completed 07/16/2015 Visit Plan: Nevi treated with cryotherapy - pt to use neosporin on the lesions - call if not resolved completely. Coccygeal pain - recommended pt to use samples of flector patches on the coccyx. 06/19/2015 Appointment: [facility] [address] [facility] [place] (15 min) Moderate 06/19/2015 Patient Education: Patient Medication Summary Completed 06/19/2015 Appointment: [facility] [address] [facility] [place] (15 min) Moderate 05/31/2015 Visit Plan: [...] in 2007. 02/08/2015 Appointment: Arlene Alas WPtel: [address] [place], [place] [address] [place] (S) New Patient 02/08/2015 Patient Education: [...]
--- OUTSIDE RECORDS SUMMARY | 2018-12-03 07:26 | XMS REPORT | CCD ---
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 Blue Cross/Blue Shield [id number] Unknown Family history Grandmother Diagnosis Age At Onset Diabetes Unknown Mother Diagnosis Age At Onset Cancer Unknown Social History Social History Element Codes Description Effective Dates Marital status Unknown Colt 07/28/2017 Number of children Unknown 3 02/08/[address]: 982604546 Never smoker 02/08/2015 Alcohol history Unknown occasionally drinks alcohol 02/08/2015 Frequency of drinks SNOMED CT: 665556726 1-4 drinks per week 02/08/2015 Allergies, Adverse Reactions, Alerts Substance Reaction Codes Entered Date Inactivated Date Status * NO KNOWN DRUG ALLERGIES Unknown 02/08/2015 No Inactive Date Active Past Medical History Illness Codes Condition Status Onset Date Resolved Date Abnormal findings on diagnostic imaging of other [...] ICD-9: V72.31 ICD-10: Z01.419 Active 03/18/2017 Unknown Encounter for general adult medical examination without abnormal findings ICD-9: V70.0 ICD-10: Z00.00 Active 09/09/2016 Unknown Excessive and frequent menstruation with regular cycle ICD-9: 626.2 ICD-10: N92.0 Active 01/16/2017 Unknown Other benign neoplasm of skin of [...] Problems Condition Codes Effective Dates Condition Status Abnormal findings on diagnostic imaging of other [...] findings ICD-9: V72.31 ICD-10: Z01.419 03/18/2017 Active Encounter for general adult medical examination without abnormal findings ICD-9: V70.0 ICD-10: Z00.00 09/09/2016 Active Excessive and frequent menstruation with regular cycle ICD-9: 626.2 ICD-10: N92.0 01/16/2017 Active Other benign neoplasm of skin of [...] Instructions Desogen 0.15 mg-0.03 mg tablet RxNorm: 356541 1 Tablet(s) daily TAKE 1 TABLET BY MOUTH ONCE DAILY 06/29/2018 06/23/2019 Active hold until patient calls for reill Desogen 0.15 mg-0.03 mg tablet RxNorm: 727634 Tablet(s) TAKE 1 TABLET BY MOUTH ONCE DAILY 06/24/2018 06/28/2018 Inactive Generic For:*DESOGEN-28 05/03/2018 9:04: 52 AM Desogen 0.15 mg-0.03 mg tablet RxNorm: 901739 TAKE 1 TABLET BY MOUTH ONCE DAILY 05/03/2018 06/23/2018 Inactive Generic For:*DESOGEN-28 05/03/2018 9:04:52 AM Desogen 0.15 mg-0.03 mg tablet RxNorm: 229513 1 Tablet(s) PO daily 08/10/2017 08/09/2017 Inactive Desogen 0.15 mg-0.03 mg tablet RxNorm: 299706 1 Tablet(s) PO daily 08/10/2017 05/02/2018 Inactive Lo Loestrin Fe 1 mg-10 mcg (24)/10 mcg (2) tablet RxNorm: 3339950 1 Tablet(s) PO daily 03/18/2017 06/15/2017 Inactive ferrous sulfate 325 mg (65 mg iron) tablet RxNorm: 972297 1 Tablet(s) PO BID No Start Date 07/27/2017 Inactive sertraline 25 mg tablet RxNorm: 039369 1 Tablet(s) PO daily No Start Date 07/15/2015 Inactive Medication Administered No Medication Administered data Immunizations Vaccine Codes Date Status Influenza CVX: 141 06/07/2014 completed Assessments Condition Codes Effective Dates Generalized abdominal pain ICD-10: R10.84 ICD-9: 789.07 [...] cycle ICD- 10: N92.0 ICD-9: 626.2 02/04/2017 Encounter for general adult medical examination without abnormal findings ICD-10: Z00.00 ICD-9: V70.0 02/04/2017 Other benign neoplasm of skin of unspecified part of face ICD-10: D23.30 ICD-9: 216.3 07/16/2015 Sacrococcygeal disorders, not elsewhere classified ICD-10: M53.3 ICD-9: 724.79 06/19/2015 Nonscarring hair loss ICD-9: 704.09 02/08 Routine medical exam ICD-9: V70.0 2014 Multinodular goiter ICD-9: 241.1 2014 Menorrhagia with irregular cycle ICD-9: 626.2 02/08/2015 Reason For Visit Reason For Visit Effective Dates Notes abdominal pain 07/28/2017 well woman exam (40-65 years) 03/18/2017 menstrual irregularity 01/16/2017 _ 09/09/2016 yearly visit office procedure 07/16/2015 mole check 06/19/2015 menstrual irregularity 02/08/2015 Results No Results data Review of Systems System Result Effective Dates Constitutional recent illness 07/28/2017 Constitutional No chills [...] accomodation 09/09/2016 None Full Exam - General 1995 Ears/Nose/Throat otoscopic exam Overall: external auditory canals clear 09/09/2016 None Full Exam - General 1995 Ears/Nose/Throat otoscopic exam Overall: tympanic membranes clear 09/09/2016 None Full Exam - General 1995 Ears/Nose/Throat lips/teeth/gingiva Overall: benign lips 09/09/2016 None Full Exam - General 1995 Ears/Nose/Throat lips/teeth/gingiva Overall: normal dentition 09/09/2016 None Full Exam - General 1994 Ears/Nose/Throat oral cavity/pharynx/larynx Overall: oral mucosa clear 09/09/2016 None Full Exam - General 1995 Ears/Nose/Throat oral cavity/pharynx/larynx Overall: oropharyngeal mucosa clear 09/09/2016 None Full Exam - General 1995 Ears/Nose/Throat oral cavity/pharynx/larynx Overall: hypopharynx benign 09/09/2016 None Full Exam - General 1995 Ears/Nose/Throat oral cavity/pharynx/larynx Overall: no masses 09/09/2016 [...] Procedure Codes Date DESTRUCT PREMALG LESION CPT-4: 02991 06/19/2015 DESTRUCT PREMALG LES 2-14 CPT-4: 63528 06/19/2015 ROUTINE VENIPUNCTURE CPT-4: 38357 02/08/2015 Vital Signs Date Vital 07/28/2017 Blood Pressure 1: 110/76 Code : 8480-6 BMI: 23.1 Code : 18560-6 Heart Rate 1 : 78 bpm Height: 5'10" SpO2: 98% Weight: 161 lbs 03/18/2017 Blood Pressure 1: 120/70 Code : 8480-6 BMI: 23.1 Code : 45201-0 Heart Rate 1 : 90 bpm Height: 5'10" SpO2: 94% Weight: 161 lbs 01/16/2017 Blood Pressure 1: 126/80 Code : 8480-6 BMI: 23.2 Code : 04079-1 Heart Rate 1 : 80 bpm Height: 5'10" SpO2: 98% Weight: 162 lbs 09/09/2016 Blood Pressure 1: 110/68 Code : 8480-6 BMI: 23.2 Code : 54480-3 Heart Rate 1 : 106 bpm Height: 5'10 " SpO2: 98% Weight: 162 lbs 07/16/2015 Blood Pressure 1: 118/70 Code : 8480-6 BMI: 23.1 Code : 65681-4 Heart Rate 1 : 74 bpm Height: 5'10" Weight: 161 lbs 06/19/2015 Blood Pressure 1: 118/70 Code : 8480-6 BMI: 23.0 Code : 97197-2 Heart Rate 1 : 73 bpm Height: 5'10" SpO2: 99% Weight: 160 lbs 02/08/2015 Blood Pressure 1: 128/68 Code : 8480-6 BMI: 23.1 Code : 42154-8 Heart Rate 1 : 70 bpm Height: 5'10" SpO2: 98% Weight: 161 lbs Functional Status No Functional Status data History of Present Illness Symptom Name Status Result Effective Date Notes abdominal pain Quality acute 07/28/2017 None abdominal [...] data Encounters Encounter Performer Location Codes Date ([id number]) 11651 EST. PATIENT, LEVEL IV Diagnosis: Abnormal findings on diagnostic imaging of other specified body structures[ICD10: R93.8] Diagnosis: Polyp of corpus uteri[ICD10: N84.0] Diagnosis: Generalized abdominal pain[ICD10: R10.84] Shanti Alas MD, [facility] CPT-4: 23522 07/28/2017 (02900) PREV VISIT EST AGE 40-64 Diagnosis: Encounter for gynecological examination (general) (routine) without abnormal findings[ICD10: Z01.419] Arlene Alas MD, [facility] CPT-4: 70255 03/18/2017 04622 EST. PATIENT, LEVEL III Diagnosis: Excessive and frequent menstruation with regular cycle[ICD10: N92.0] Alka Alas MD, [facility] CPT-4: 32026 01/16/2017 ([id number]) PREV VISIT EST AGE 40-64 Diagnosis: Encounter for general adult medical examination without abnormal findings[ICD10: Z00.00] [facility] CPT-4: 83783 09/09/2016 ([id number]) 15686 EST. PATIENT, LEVEL II Diagnosis: Other benign neoplasm of skin of unspecified part of face[ICD10: D23.30] Arlene Alas MD, [facility] CPT-4: 49382 2014 ([id number]) 74077 EST. PATIENT, LEVEL III Diagnosis: Sacrococcygeal disorders, not elsewhere classified[ICD10: M53.3] [facility] CPT-4: 96886 06/19/2015 ([id number]) PREV VISIT NEW AGE 40-64 Diagnosis: Routine medical exam[ICD9: V70.0] Diagnosis: Multinodular goiter[ICD9: 241.1] Diagnosis: Nonscarring hair loss[ICD9: 704.09] Diagnosis: Menorrhagia with irregular cycle[ICD9: 626.2] [facility] CPT-4: 82398 02/08/2015 Plan of Care Planned Activity Notes Codes Status Date Patient Education: Patient Medication Summary Completed 08/10/2017 Visit Plan: Abdominal pain-symptoms resolved-will obtain gallbladder ultrasound to further evaluate gallbladder-continue PPI, low fat diet-call if symptoms return Endometrial thickening on CT scan-will further evaluate with pelvic ultrasound 07/28/2017 Appointment: Shanti Jiménez WPtel: [phone] [place] (15 min) Moderate 07/28/2017 Patient Education: [...] Summary Completed 03/18/2017 Appointment: Arlene Alas WPtel: [address] [place], [place] [phone] Well Woman 03/05/2017 Patient Education: Patient Medication Summary Completed 02/04/2017 Visit Plan: Heavy periods - Pt states that it has been ongoing for the past 2 days - will check labs, pt is to notify clinic if symptoms do not improve, if they worsen, or with any changes or concerns. 01/16/2017 Appointment: Alka Salazar WPtel: [address] [place], [place] [phone] (30 min) Complex 01/16/2017 Patient Education: Patient [...] of lesions. 07/16/2015 Appointment: Arlene Alas WPtel: [address] [place], [place] [phone] Surgical Procedure 07/16/2015 Patient Education: Patient Medication Summary Completed 07/16/2015 Visit Plan: Nevi treated with cryotherapy - pt to use neosporin on the lesions - call if not resolved completely. Coccygeal pain - recommended pt to use samples of flector patches on the coccyx. 06/19/2015 Appointment: Arlene Alas WPtel: [address] [place], [place] [phone] [place] (15 min) Moderate 06/19/2015 Patient Education: Patient Medication Summary Completed 06/19/2015 Appointment: Arlene Alas WPtel: [address] [place], [place] [phone] (15 min) Moderate 05/31/2015 Visit Plan: Well [...] in 2007. 02/08/2015 Appointment: Arlene Alas WPtel: [address] [place], [place] [phone] [place] (S) New Patient 02/08/2015 Patient Education: [...]
--- OUTSIDE RECORDS SUMMARY | 2018-12-03 07:26 | XMS REPORT | Continuity of Care Document ---
Author Author [facility] Organization [facility] Address Unknown Phone Unavailable Allergies Active Description Code Type Severity Reaction Onset Reported/Identified Relationship to Patient Clinical Status Yes NKANo Known Allergies NKA Miscellaneous Allergy Unknown N/A 01/31/2006 Yes No Known Drug Allergies [id number] Drug Allergy Unknown N/A 11/25/2018 Medications There is no data. Problems Date Dx Coded Attending Type Code Diagnosis Diagnosed By 10/02/2014 CHRISTIANO BURDICK MD Ot 241.0 10/02/2014 CHRISTIANO BURDICK MD Ot V76.12 01/04/2015 Ot 241.0 01/04/2015 Ot 241.0 01/04/2015 Ot V67.9 01/04/2015 CHRISTIANO BURDICK MD Ot 241.0 01/04/2015 CHRISTIANO BURDICK MD Ot 241.0 01/04/2015 CHRISTIANO BURDICK MD Ot 241.0 01/04/2015 CHRISTIANO BURDICK MD Ot V76.12 03/02/2015 NAM IVORY, BRENDAN Trivedi Ot 241.1 03/02/2015 NAM IVORY, BRENDAN Trivedi Ot 626.4 03/02/2015 NAM IVORY, BRENDAN Trivedi Ot 704.00 02/29/2016 Ot 241.0 NONTOX UNINODULAR GOITER 02/29/2016 Ot 241.0 NONTOX UNINODULAR GOITER 02/29/2016 Ot V67.9 FOLLOW-UP EXAM NOS 02/29/2016 CHRISTIANO BURDICK MD Ot 241.0 NONTOX UNINODULAR GOITER 02/29/2016 CHRISTIANO BURDICK MD Ot 241.0 NONTOX UNINODULAR GOITER 02/29/2016 CHRISTIANO BURDICK MD Ot 241.0 NONTOX UNINODULAR GOITER 02/29/2016 CHRISTIANO BURDICK MD Ot V76.12 OT SCREEN MAMMO-MALIGN NEOPLASM OF VANDANA 02/29/2016 BRENDAN [...] Z12.31 ENCNTR SCREEN MAMMOGRAM FOR MALIGNANT NE 07/25/2017 Ot 241.0 NONTOX UNINODULAR GOITER 07/25/2017 Ot 241.0 NONTOX UNINODULAR GOITER 07/25/2017 Ot V67.9 FOLLOW-UP EXAM NOS 07/25/2017 GENNARO IVORY, CHRISTIANO Baldwin Ot 241.0 NONTOX UNINODULAR GOITER 07/25/2017 GENNARO IVORY, CHRISTIANO Baldwin Ot 241.0 NONTOX UNINODULAR GOITER 07/25/2017 GENNARO IVORY, CHRISTIANO Baldwin Ot 241.0 NONTOX UNINODULAR GOITER 07/25/2017 CHRISTIANO BURDICK MD Ot V76.12 OTH SCREEN MAMMO-MALIGN NEOPLASM OF VANDANA 07/25/2017 BRENDAN BROWNING MD Ot 241.1 NONTOX MULTINODUL GOITER 07/25/2017 BRENDAN BROWNING MD Ot 626.4 IRREGULAR MENSTRUATION 07/25/2017 BRENDAN BROWNING MD Ot 704.00 ALOPECIA NOS 07/25/2017 BRENDAN BROWNING MD Ot Z12.31 ENCNTR SCREEN MAMMOGRAM FOR MALIGNANT NE 07/26/2017 TAN BRIDGES DO Ot 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 07/26/2017 TAN BRIDGES DO Ot N39.0 URINARY TRACT INFECTION, SITE NOT SPECIF 07/26/2017 TAN BRIDGES DO Ot N83.201 UNSPECIFIED OVARIAN CYST, RIGHT SIDE 07/26/2017 TAN BRIDGES DO Ot R10.13 EPIGASTRIC PAIN 07/26/2017 TAN BRIDGES DO Ot Z87.19 PERSONAL HISTORY OF OTHER DISEASES OF TH 07/31/2017 TAN BRIDGES DO Ot 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 07/31/2017 TAN BRIDGES DO Ot N39.0 URINARY TRACT INFECTION, SITE NOT SPECIF 07/31/2017 TAN BRIDGES DO Ot N83.201 UNSPECIFIED OVARIAN CYST, RIGHT SIDE 07/31/2017 TAN BRIDGES DO Ot R10.13 EPIGASTRIC PAIN 07/31/2017 TAN BRIDGES DO Ot Z87.19 PERSONAL HISTORY OF OTHER DISEASES OF TH 08/12/2017 ZAHIRA DEXTER Ot K82.4 CHOLESTEROLOSIS OF GALLBLADDER 08/12/2017 ZAHIRA DEXTER Ot N83.201 UNSPECIFIED OVARIAN CYST, RIGHT SIDE 08/21/2017 ZAHIRA DEXTER Ot K82.4 CHOLESTEROLOSIS OF GALLBLADDER 08/21/2017 ZAHIRA DEXTER Ot N83.201 UNSPECIFIED OVARIAN CYST, RIGHT SIDE 11/26/2017 NOLA PURCELL MD Ot Z12.31 ENCNTR SCREEN MAMMOGRAM FOR MALIGNANT NE 12/10/2017 ZAHIRA DEXTER Ot K75.9 INFLAMMATORY LIVER DISEASE, UNSPECIFIED 12/10/2017 ZAHIRA DEXTER Ot K82.8 OTHER SPECIFIED DISEASES OF GALLBLADDER 12/10/2017 NOLA PURCELL MD, Ot Z12.31 ENCNTR SCREEN MAMMOGRAM FOR MALIGNANT NE 01/13/2018 ZAHIRA DEXTER Ot K75.9 INFLAMMATORY LIVER DISEASE, UNSPECIFIED 01/13/2018 ZAHIRA DEXTER Ot K82.8 OTHER SPECIFIED DISEASES OF GALLBLADDER 09/20/2018 NOLA PURCELL MD Ot N63.21 UNSPECIFIED LUMP IN THE LEFT BREAST, UPP 10/14/2018 NOLA PURCELL MD, Ot N63.21 UNSPECIFIED LUMP IN THE LEFT BREAST, UPP 10/29/2018 NOLA PURCELL MD, Ot N63.21 UNSPECIFIED LUMP IN THE LEFT BREAST, UPP 11/25/2018 SHAQUILLE DUONG DO Ot Z01.818 ENCOUNTER FOR OTHER PREPROCEDURAL EXAMIN Procedures There is no data. Results Test Result Range Complete blood count (CBC) with automated white blood cell (WBC) differential - 07/25/17 22:10 Blood leukocytes automated count (number/volume) 6.2 10*3/uL 4.3-11.0 Blood erythrocytes automated count (number/volume) 4.14 10*6/uL 4.35-5.85 Venous blood hemoglobin measurement (mass/volume) 12.6 g/dL 11.5-16.0 Blood hematocrit (volume fraction) 37 % 35-52 Automated erythrocyte mean corpuscular volume 90 [foz_us] 80-99 Automated erythrocyte mean corpuscular hemoglobin (mass per erythrocyte) 30 pg 25-34 Automated erythrocyte mean corpuscular hemoglobin concentration measurement ( mass/volume) 34 g/dL 32-36 Automated erythrocyte distribution width ratio 12.1 % 10.0-14.5 Automated blood platelet count (count/volume) 214 10*3/uL 130-400 Automated blood platelet mean volume measurement 11.0 [foz_us] 7.4-10.4 Automated blood neutrophils/100 leukocytes 53 % 42-75 Automated blood lymphocytes/100 leukocytes 39 % 12-44 Blood monocytes/100 leukocytes 8 % 0-12 Automated blood eosinophils/100 leukocytes 1 % 0-10 Automated blood basophils/100 leukocytes 0 % 0-10 Blood neutrophils automated count (number/volume) 3.3 10*3 1.8-7.8 Blood lymphocytes automated count (number/volume) 2.4 10*3 1.0-4.0 Blood monocytes automated count (number/volume) 0.5 10*3 0.0-1.0 Automated eosinophil count 0.1 10*3/uL 0.0-0.3 Automated blood basophil count (count/volume) 0.0 10*3/uL 0.0-0.1 Comprehensive metabolic panel - 07/25/17 22:10 Serum or plasma sodium measurement (moles/volume) 143 mmol/L 135-145 Serum or plasma potassium measurement (moles/volume) 3.3 mmol/L 3.6-5.0 Serum or plasma chloride measurement (moles/volume) 107 mmol/L 98-107 Carbon dioxide 22 mmol/L 21-32 Serum or plasma anion gap determination (moles/volume) 14 mmol/L 5-14 Serum or plasma urea nitrogen measurement (mass/volume) 13 mg/dL 7-18 Serum or plasma creatinine measurement (mass/volume) 0.76 mg/dL 0.60-1.30 Serum or plasma urea nitrogen/creatinine mass ratio 17 NRG Serum or plasma creatinine measurement with calculation of estimated glomerular filtration rate > NRG Serum or plasma glucose measurement (mass/volume) 149 mg/dL 70-105 Serum or plasma calcium measurement (mass/volume) 8.9 mg/dL 8.5-10.1 Serum or plasma total bilirubin measurement (mass/volume) 0.4 mg/dL 0.1-1.0 Serum or plasma alkaline phosphatase measurement (enzymatic activity/volume) 44 U/L 40-136 Serum or plasma aspartate aminotransferase measurement (enzymatic activity/ volume) 23 U/L 5-34 Serum or plasma alanine aminotransferase measurement (enzymatic activity/volume ) 17 U/L 0-55 Serum or plasma protein measurement (mass/volume) 6.3 g/dL 6.4-8.2 Serum or plasma albumin measurement (mass/volume) 4.0 g/dL 3.2-4.5 Serum or plasma amylase measurement (enzymatic activity/volume) - 07/25/17 22: 10 Serum or plasma amylase measurement (enzymatic activity/volume) 62 U /L 25-125 Lipase - 07/25/17 22:10 Lipase 37 U/L 8-78 Complete urinalysis with reflex to culture - 07/25/17 22:19 Urine color determination YELLOW NRG Urine clarity determination SLIGHTLY CLOUDY NRG Urine pH measurement by test strip 7 5-9 Specific gravity of urine by test strip 1.015 1.016- 1.022 Urine protein assay by test strip, semi-quantitative 1+ NEGATIVE Urine glucose detection by automated test strip NEGATIVE NEGATIVE Erythrocytes detection in urine sediment by light microscopy 2+ NEGATIVE Urine ketones detection by automated test strip NEGATIVE NEGATIVE Urine nitrite detection by test strip NEGATIVE NEGATIVE Urine total bilirubin detection by test strip NEGATIVE NEGATIVE Urine urobilinogen measurement by automated test strip (mass/volume) 8 mg/dL NORMAL Urine leukocyte esterase detection by dipstick 2+ NEGATIVE Automated urine sediment erythrocyte count by microscopy (number/high power field) [HPF] NRG Automated urine sediment leukocyte count by microscopy (number/high power field ) [HPF] NRG Bacteria detection in urine sediment by light microscopy TRACE NRG Squamous epithelial cells detection in urine sediment by light microscopy 25-50 NRG Crystals detection in urine sediment by light microscopy NONE NRG Casts detection in urine sediment by light microscopy NONE NRG Mucus detection in urine sediment by light microscopy MODERATE NRG Complete urinalysis with reflex to culture YES NRG Renal epithelial cells detection in urine sediment by light microscopy NONE NRG Urine beta human chorionic gonadotropin (hCG) measurement - 07/25/17 22:19 Urine beta human chorionic gonadotropin (hCG) measurement NEGATIVE NEGATIVE Bacterial urine culture - 07/25/17 22:19 URINE CULTURE RESULTS <10,000/ML NRG Encounters ACCT No. Visit Date/Time Discharge Status Pt. Type Provider Facility Loc./Unit Complaint [id number] 11/25/2018 05:50:00 11/25/2018 23:59:59 CLS Outpatient SHAQUILLE DUONG DO [facility] PREOP LEFT BREAST LUMP [id number] 09/17/2018 13:35:00 09/17/2018 23:59:59 CLS Outpatient NOLA PURCELL MD [facility] RAD LT BREAST NODULE [id number] 12/09/2017 07:59:00 12/09/2017 23:59:59 CLS Outpatient ZAHIRA DEXTER [facility] RAD HX OF INFLAMED LIVER 3 MONTH F/U [id number] 11/25/2017 11:19:00 11/25/2017 23:59:59 CLS Outpatient NOLA PURCELL MD [facility] RAD ROUTINE SCREENING [id number] 08/06/2017 09:48:00 08/06/2017 23:59:59 CLS Outpatient ZAHIRA DEXTER [facility] RAD ABD PAIN, ENDOMETRIAL THICKENING [id number] 07/25/2017 21:49:00 07/26/2017 00:14:00 DIS Emergency CYRUS TAN Rachel [facility] ER STOMACH PAIN [id number] 09/23/2016 11:42:00 09/23/2016 23:59:59 CLS Outpatient BRENDAN BROWNING MD [facility] RAD SCREENING [id number] 02/13/2015 10:58:00 02/13/2015 23:59:59 CLS Outpatient BRENDAN BROWNING MD [facility] RAD MULTINODULAR GOITER, IRREGULAR CYCLE [id number] 09/05/2014 08:37:00 09/05/2014 23:59:59 CLS Outpatient CHRISTIANO BURDICK MD [facility] RAD ROUTINE,F/U THYROID NODULE [id number] 08/12/2013 11:55:00 08/12/2013 23:59:59 CLS Outpatient CHRISTIANO BURDICK MD [facility] RAD FOLLOW UP THYROID NODULE [id number] 02/04/2013 10:06:00 02/04/2013 23:59:59 CLS Outpatient CHRISTIANO BURDICK MD [facility] RAD F/U THYROID NODULE [id number] 12/03/2018 09:00:00 PEN Preadmit SHAQUILLE DUONG DO [facility] SDC LEFT BREAST LUMP [id number] 08/02/2012 09:36:00 Document Registration [id number] 02/19/2012 10:37:00 Document Registration [id number] 07/27/2017 08:12:40 07/27/2017 23:59:59 CLS Outpatient
[2018-12-03 07:40] VITALS: BP 102/78
[2018-12-03] MEDS: LACTATED RINGERS 1,000 ML IV PRN ×2 (07:55→09:14)
[2018-12-03] MEDS ORDERED: ceFAZolin 2 GM IV Premixed 50 ML IV ONE (08:00)
[2018-12-03] MEDS ORDERED: BUP/EPI 0.5% 1:200,000 (SENSORCAINE) 30 ML VIAL ONE (08:10)
[2018-12-03] MEDS ORDERED: LIDOCAINE 1% INJ 20 ML 20 ML VIAL ONE (08:10)
--- NOTE | 2018-12-03 08:27 | Progress Note-Pre Operative ---
Pre-Operative Progress Note H&P Reviewed The H&P was reviewed, patient examined and no changes noted. Time Seen by Provider: 08:22 Date H&P Reviewed: Dec 03, 2018 Time H&P Reviewed: 08:23 Pre-Operative Diagnosis: Left breast mass SHAQUILLE DUONG DO Dec 03, 2018 08:27
[2018-12-03] MEDS ORDERED: DEXAMETHASONE 10 MG/ML (DECADRON) 1 ML VIAL ONE (08:28)
[2018-12-03] MEDS ORDERED: MIDAZOLAM 2 MG/2 ML (VERSED) VIAL ONE (08:28)
[2018-12-03] MEDS ORDERED: fentaNYL INJECTION 100 MCG/2 ML AMP ONE (08:28)
[2018-12-03] MEDS ORDERED: LIDOCAINE PF 2% 5 ML (XYLOCAINE) VIAL ONE (08:28)
[2018-12-03] MEDS ORDERED: ONDANSETRON 4 MG/2 ML (SDV) Z0FRAN ONE (08:28)
[2018-12-03] MEDS ORDERED: proPOfol 200 MG/20 ML (DIPRIVAN) VIAL IV ONE (08:28)
[2018-12-03] MEDS ORDERED: SEVOFLURANE (ULTANE) 15 ML INHAL SOLN ONE (09:14)
--- NOTE | 2018-12-03 09:32 | Progress Note-Post Operative ---
Post-Operative Progess Note Surgeon (s)/Tool Grinder Operator (s) Surgeon SHAQUILLE DUONG DO Tool Grinder Operator: none Pre-Operative Diagnosis Left breast mass Post-Operative Diagnosis same pending pathology Procedure & Operative Findings Date of Procedure 12/03/18 Procedure Performed/Findings Left breast biopsy Anesthesia Type LMA Estimated Blood Loss Estimated blood loss (mL): 50ml Specimens/Packing Specimens Removed left breast mass SHAQUILLE DUONG DO Dec 03, 2018 09:32
[2018-12-03] MEDS ORDERED: ACHD5005 PO (09:33)
--- NOTE | 2018-12-03 09:34 | Discharge Inst-Surgical ---
Discharge Inst-Surgical Depart Medication/Instructions New, Converted or Re-Newed RX: RX Given to Pt/Family Patient Instructions Follow up Appt: Make appointment for 1 week. [phone] Instructions: No lifting greater than 20 pounds. No strenuous activity. May shower in 24 hours, no tub bath or soaking. Use incentive spirometer at home as directed. No Smoking Skin/Wound Care: May remove bandages in am. You need to leave the Dermabond on incision it will fall off on it's own. Symptoms to Report: Appetite Changes, Extremity Discoloration, Numbness/Tingling, Swelling Increased , Bleeding Excessive, Eyesight Changes, Pain Increased, Urine Color Change, Constipation(Persistent), Fever over 101 degree F, Pain/Pressure in chest, Urinating Difficulty, Cough Up/Vomit Blood, Heart Beat Irreg/Pounding, Pain/ Pressure in jaw, Cramps in feet or legs, Lightheadedness, Pain/Pressure in shoulder, Diarrhea(Persistent), Memory Changes Suddenly, Questions/Concerns, Weight gain consecutive days, Dizziness/Fainting, Nausea/Vomiting, Shortness of Breath, Weight gain over 2 pounds If questions or concerns contact your physician Or seek help at emergency department. Activity Activity as Tolerated: Yes Activity Instructions: Avoid Stress to Incision Driving Instructions: No Driving/Refer to Dr. Boland Discharge Diet: No Restrictions Diet After 24 Hours: Clear Liquid if Nauseous If Any Problems/Questions/Issu: Contact Your Physician, Go to Emergency Room Skin/Wound Care Infection Signs and Symptoms: Increased Redness, Foul Odor of Wound, Increased Drainage, Skin Itchy or Has a Rash, Increased Swelling, Temperature Above 101 F Wound Care Comment: Wear a tight fitting sports bra for 24 hours per day for the next 7-10 days, except to shower Bathing Instructions: Shower Stitches/Chanda/Dermabond Dis: Dermabond Ice Pack: Ice On and Off Site SHAQUILLE DUONG DO Dec 03, 2018 09:34
[2018-12-03] MEDS ORDERED: morphine INJ 10 MG/ML 1ML (SYR OR VIAL) IVP ONE (09:45)
[2018-12-03] MEDS ORDERED: ONDANSETRON 4 MG/2 ML (SDV) Z0FRAN IVP PRN (09:45)
[2018-12-03] MEDS ORDERED: HYDROmorphone 2 MG/ML VIAL (DILAUDID) IV ONE (09:45)
[2018-12-03 10:20] VITALS: BP 112/65
[2018-12-03] MEDS ORDERED: HYDROcodone/APAP 5 MG/325 MG (LORTAB) TAB PO ONE (10:45)
[2018-12-03 10:50] VITALS: BP 107/69
[2018-12-03 11:20] VITALS: BP 110/77
[2018-12-03 11:30] VITALS: BP 110/77
--- NOTE | 2018-12-03 13:48 | Anesthesia-General Post-Op ---
General Patient Condition Mental Status/LOC: Same as Preop Cardiovascular: Satisfactory Nausea/Vomiting: Absent Respiratory: Satisfactory Pain: Controlled Complications: Absent Post Op Complications Complications None Follow Up Care/Instructions Patient Instructions None needed. Anesthesia/Patient Condition Patient Condition Patient is doing well, no complaints, stable vital signs, no apparent adverse anesthesia problems. No complications reported per nursing. RANI GILMORE CRNA Dec 03, 2018 13:48
--- NOTE | 2018-12-03 16:20 | OPERATIVE REPORT ---
DATE OF SERVICE: 12/03/2018 PREOPERATIVE DIAGNOSIS: Left breast mass. POSTOPERATIVE DIAGNOSIS: Left breast mass, pending pathology. PROCEDURE PERFORMED: Left breast biopsy. SURGEON: Jasbir Royal DO. SECURITY SYSTEMS MANAGER: None. ANESTHESIA: IV sedation with LMA. SPECIMEN: Left breast mass. BLOOD LOSS: Approximately 50 mL. FLUIDS: Per Anesthesia. POSTOPERATIVE CONDITION: Stable. INDICATION FOR PROCEDURE: The patient is a 43-year-old female with left breast mass was read as a cyst, but some bile in her and she wanted it removed. She was worried about possible cancer and could not have any of them. FINDINGS: The patient had left breast mass. A lot of fibrocystic tissue and some cysts removed and sent to pathology. PROCEDURE NOTE: After informed consent was obtained, the patient was brought to the operating room, placed on the table in supine position. She was sterilely prepped and draped in normal fashion. Local lidocaine was used to infiltrate above the palpable mass in the left upper outer quadrant of the breast and then around the area in a regional block. Made incision with #15 blade, carried down through the skin into subcutaneous tissue, then deepened down to subcutaneous tissue with Bovie electrocautery, creating flaps medially and laterally from the incision which was made at about the 2 o'clock position about 6 cm from the areola. A curvilinear incision made, palpated this fullness and then started dissecting around it. She had very fibrous tissue in her breast and there were some cysts in there. I removed a piece that felt like the palpable mass with some bleeding. This was controlled with Bovie electrocautery and then felt another larger mass up to the axillary tail and elected to remove this as well and also found what looked like fibrous tissue, removed this en bloc and sent to pathology. At this point, I copiously irrigated with normal saline, hemostasis was obtained with Bovie electrocautery and elected to close the incision. Once there was no bleeding, 2 layers closing the subcutaneous tissue with 3-0 Vicryl 3 interrupted sutures and closed the skin with 4-0 undyed Monocryl 5 interrupted subcuticular stitches. Area was cleaned and dried, benzoin was placed as well as fluff and pressure dressing. The patient tolerated the procedure, still in the room while I was dictating this and she is in stable condition and was transferred to recovery room. Job ID: [id number] DocumentID: [id number] Dictated Date: 12/03/2018 09:30:57 Senior Courtroom Clerk Date: 12/03/2018 16:19:23 Dictated By: DO SINDY WALKER
== END 2018-12-03 11:40 | disposition home or self-care (01) ==
LOC: SDC 07:18
PROVIDERS: ATTEND Surgery
DX: N60.02 Solitary cyst of left breast (principal); E04.9 Nontoxic goiter, unspecified
CPT/HCPCS: 84703; 87081

== ENCOUNTER → 2018-12-28 | Outpatient (CLI) | payer BC ==
[~2018-12-28] MED LIST changes: +ACHD5005 PO
--- NOTE | 2018-12-28 12:07 | Diagnostic Imaging Report ---
PROCEDURE: US Thyroid. TECHNIQUE: Multiple Real-time grayscale images were obtained of the thyroid in various projections. INDICATION: Multinodular goiter. FINDINGS: The previous thyroid ultrasound exam performed on 02/13/2015 noted a 2.5 x 1.4 x 1.8 cm solid vascular nodule in the inferior pole of the right lobe of the thyroid. The subsequent Nuclear Medicine thyroid scan of 02/14/2015 failed to show any sign of a photopenic defect in the right lobe that would suggest a cold nodule. On this exam, the solid nodule in the right lobe of the thyroid seen previously is again evident and now measures 2.4 x 1.7 x 2.1 cm. The overall appearance of the nodule itself has not changed significantly and the relatively stable appearance of this lesion over a nearly 4 year interval would suggest that it is not related to an aggressive neoplastic process. There are also subcentimeter nodules in each lobe. These are similar to the prior study. The thyroid gland itself is borderline enlarged with the right lobe measuring 4.7 x 1.5 x 2.2 cm while the left lobe is 3.6 x 1.2 x 1.8 cm (normal gland size 4-5 x 2 x 2 cm or less). IMPRESSION: 1. The prominent solid nodule in the inferior pole of the right lobe of the thyroid seen previously does not appear to have changed significantly. Most likely, this is a benign process. 2. The overall appearance of the thyroid gland itself is generally stable. No new abnormality has developed that would suggest malignancy. Dictated by: Dictated on workstation # [id number]
== END ==
LOC: RAD 09:32
PROVIDERS: ATTEND Family Medicine
DX: E04.2 Nontoxic multinodular goiter (principal)
CPT/HCPCS: 76536

== ENCOUNTER → 2019-09-14 | Outpatient (CLI) | payer BC ==
--- NOTE | 2019-09-14 13:04 | Diagnostic Imaging Report ---
INDICATION: Routine screening. COMPARISON: Comparison is made with prior mammograms from 09/17/2018 and 11/25/2017. 2-D and 3-D bilateral screening mammography was performed. The current study was also evaluated with a Computer Aided Detection (CAD) system. 3-D tomosynthesis was also performed and reviewed. FINDINGS: Both breasts are heterogeneously dense, limiting the sensitivity of mammography. Circumscribed densities in the right breast are noted suggestive of cysts. Circumscribed density in the left breast previously seen has decreased in size. No new mass or malignant-appearing microcalcifications are seen. Axillae are unremarkable. IMPRESSION: No mammographic features suspicious for malignancy are identified. ACR BI-RADS Category 2: Benign findings. Result letter will be mailed to the patient. Note: At least 10% of breast cancer is not imaged by mammography. Dictated by: Dictated on workstation # [id number]
== END ==
LOC: RAD 11:27
PROVIDERS: ATTEND Obstetrics & Gynecology
DX: Z12.31 Encounter for screening mammogram for malignant neoplasm of breast (principal)
CPT/HCPCS: 77067

== ENCOUNTER 2020-01-16 08:35 | Outpatient (RCR) | payer BC, OTHER ==
[~2020-01-16] VITALS: Ht 177.8 cm; Wt 79.6 kg
[~2020-01-16 08:35] MED LIST changes: +DESO1TAB54 PO
== END 2020-01-16 16:09 | disposition home or self-care (01) ==
LOC: PREOP 08:35
PROVIDERS: ATTEND Surgery
DX: Z01.818 Encounter for other preprocedural examination (principal); Z11.59 Encounter for screening for other viral diseases
CPT/HCPCS: 87635

== ENCOUNTER 2020-09-11 05:39 | Outpatient (RCR) | payer OTHER ==
[~2020-09-11] VITALS: Ht 177.8 cm; Wt 81.3 kg
[~2020-09-11 05:39] MED LIST changes: +HYDR-4227 PO
== END 2020-09-11 15:49 | disposition home or self-care (01) ==
LOC: PREOP 05:39
PROVIDERS: ATTEND Surgery
DX: Z01.812 Encounter for preprocedural laboratory examination (principal); K64.4 Residual hemorrhoidal skin tags; Z20.822 Contact with and (suspected) exposure to COVID-19
CPT/HCPCS: 87635

== ENCOUNTER 2020-09-13 07:24 | Day surgery (SDC) | payer OTHER ==
[~2020-09-13] VITALS: Ht 177 cm; Wt 81.0 kg
[2020-09-13] VITALS (10 sets, daily range): BP systolic 106–129; BP diastolic 72–81
--- NOTE | 2020-09-13 08:12 | Progress Note-Pre Operative ---
Pre-Operative Progress Note H&P Reviewed The H&P was reviewed, patient examined and no changes noted. Date Seen by Provider: Sep 13, 2020 Time Seen by Provider: 08:11 Date H&P Reviewed: Sep 13, 2020 Time H&P Reviewed: 08:12 Pre-Operative Diagnosis: hemorrhoids YOUSIF MALIK DO Sep 13, 2020 08:12
[2020-09-13] MEDS ORDERED: ceFAZolin INJECTION 1,000 MG in WATER (STERILE) FOR INJECTION 10 ML IV ONE (08:15)
[2020-09-13] MEDS ORDERED: CATHETER FLUSH 10 ML SYR IV PRN (08:30)
[2020-09-13] MEDS ORDERED: LACTATED RINGERS 1,000 ML IV PRN (08:30)
[2020-09-13] MEDS ORDERED: LIDOCAINE PF 2% 5 ML (XYLOCAINE) VIAL ONE (08:40)
[2020-09-13] MEDS ORDERED: proPOfol 200 MG/20 ML (DIPRIVAN) VIAL IV ONE (08:40)
[2020-09-13] MEDS ORDERED: MIDAZOLAM 2 MG/2 ML (VERSED) VIAL ONE (08:40)
[2020-09-13] MEDS ORDERED: SEVOFLURANE (ULTANE) 15 ML INHAL SOLN ONE ×3 (08:40→09:42)
[2020-09-13] MEDS ORDERED: fentaNYL INJECTION 100 MCG/2 ML AMP ONE (08:40)
[2020-09-13] MEDS ORDERED: ONDANSETRON 4 MG/2 ML (SDV) Z0FRAN ONE (08:40)
[2020-09-13] MEDS ORDERED: LIDOCAINE/EPI 1%-1:100,000 (XYLOCAINE) 50 ML ONE (08:55)
--- NOTE | 2020-09-13 09:57 | Progress Note-Post Operative ---
Post-Operative Progess Note Surgeon (s)/Bar Hostess (s) Surgeon YOUSIF MALIK DO Bar Hostess: na Pre-Operative Diagnosis hemorrhoids Post-Operative Diagnosis internal/external hemorrhoids Procedure & Operative Findings Date of Procedure 09/13/20 Procedure Performed/Findings right posterior, left lateral hemorrhoidectomy Anesthesia Type general Estimated Blood Loss Estimated blood loss (mL): min Specimens/Packing Specimens Removed hemorrhoids YOUSIF MALIK DO Sep 13, 2020 09:57
[2020-09-13] MEDS ORDERED: HYDR-4226 PO (09:59)
[2020-09-13] MEDS ORDERED: DOCU-143 PO (09:59)
--- NOTE | 2020-09-13 10:02 | Discharge Inst-Simple/Standard ---
Discharge Inst-Standard Discharge Medications New, Converted or Re-Newed RX: RX on Chart Patient Instructions/Follow Up Plan of Care/Instructions/FU: 2-3 weeks Erin Activity as Tolerated: No Discharge Diet: Regular Diet Other Inst to Patient Follow up Appt: Make appointment for 2-3 weeks. Instructions: No lifting greater than 10 pounds. No strenuous activity. May shower in 24 hours, no tub bath or soaking. Use incentive spirometer at home as directed. No Smoking Skin/Wound Care: Sitz bath 2-3 times a day and after bowel movements. Keep area clean and dry. There is a plug at the anus, this helps pressure to incisions, If not removed with bowel movement in first 24 hours. Remove it after 24 hours. No straining with bowel movements. Symptoms to Report: Appetite Changes, Extremity Discoloration, Numbness/Tingling, Swelling Increased, Bleeding Excessive, Eyesight Changes, Pain Increased, Urine Color Change, Constipation(Persistent), Fever over 101 degree F, Pain/Pressure in chest, Urinating Difficulty, Cough Up/Vomit Blood, Heart Beat Irreg/Pounding, Pain/Pressure in jaw, Vaginal Bleeding Increase, Cramps in feet or legs, Lightheadedness, Pain/Pressure in shoulder, Diarrhea(Persistent), Memory Changes Suddenly, Questions/Concerns, Weight gain consecutive days, Dizziness/Fainting, Nausea/Vomiting, Shortness of Breath, Weight gain over 2 pounds If questions or concerns contact your physician Or seek help at emergency department. YOUSIF MALIK DO Sep 13, 2020 10:02
[2020-09-13] MEDS ORDERED: KETOROLAC 30 MG/ML VIAL ONE (10:05)
--- NOTE | 2020-09-13 12:19 | Anesthesia-General Post-Op ---
General Patient Condition Mental Status/LOC: Same as Preop Cardiovascular: Satisfactory Nausea/Vomiting: Absent Respiratory: Satisfactory Pain: Controlled Complications: Absent Post Op Complications Complications None Follow Up Care/Instructions Patient Instructions None needed. Anesthesia/Patient Condition Patient Condition Patient is doing well, no complaints, stable vital signs, no apparent adverse anesthesia problems. No complications reported per nursing. LUTHER JERNIGAN CRNA Sep 13, 2020 12:19
--- NOTE | 2020-09-15 01:34 | OPERATIVE REPORT ---
DATE OF SERVICE: 09/13/2020 PREOPERATIVE DIAGNOSIS: Internal and external hemorrhoids. POSTOPERATIVE DIAGNOSIS: Internal and external hemorrhoids. PROCEDURE: Right posterior left lateral hemorrhoidectomy. SURGEON: Yousif Khan DO ANESTHESIA: General. ESTIMATED BLOOD LOSS: Minimal. COMPLICATIONS: None. INDICATIONS: The patient is a 45-year-old female with external and internal hemorrhoids that gave her discomfort. She understands risks and benefits and wishes to proceed. Consent was signed in the chart. DESCRIPTION OF PROCEDURE: The patient was taken to the operating suite. She was placed in lithotomy position, prepped and draped in a sterile fashion. Timeout was performed. Local anesthetic was infiltrated. The patient with large right posterior and left lateral hemorrhoids. Dittmar retractor was inserted into the rectum. The right posterior hemorrhoid complex was elevated. and Harmonic was used to ligate and excise the right posterior hemorrhoid. Using Vicryl, the defect was closed. The left lateral hemorrhoid complex was then grasped and elevated using Harmonic. The external and internal component was excised. The defect was then closed using 3-0 Vicryl in a running fashion. No other pathology noted. Gelfoam and Vaseline gauze plug was created and inserted into the anus for continued pressure for hemostasis. The areas were then washed, and dried and sterile bandage was applied. The patient tolerated the procedure well without any complications. She was taken to recovery room in stable condition. Job ID: [id number] DocumentID: [id number] Dictated Date: 09/14/2020 20:45:53 International Guest Coordinator Date: 09/15/2020 01:33:23 Dictated By: YOUSIF KHAN DO
== END 2020-09-13 11:55 ==
LOC: SDC 07:24
PROVIDERS: ATTEND Surgery
DX: K64.4 Residual hemorrhoidal skin tags (principal); K64.2 Third degree hemorrhoids; Z80.8 Family history of malignant neoplasm of other organs or systems
CPT/HCPCS: 84703; 87081; 88304

== ENCOUNTER → 2020-09-27 | Outpatient (CLI) | payer OTHER ==
[~2020-09-27] MED LIST changes: +DOCU-143 PO; +HYDR-4226 PO
--- NOTE | 2020-09-27 14:08 | Diagnostic Imaging Report ---
INDICATION: Routine screening. Comparison is made with prior mammogram 09/14/2019 and 09/17/2018. 2-D and 3-D bilateral screening mammography was performed with CAD. Both breasts are heterogeneously dense, limiting the sensitivity of mammography. Numerous circumscribed densities in the right breast are noted suggestive of cysts. These appear similar to prior exam. Left breast appears stable. No spiculated mass or malignant appearing microcalcification are seen. Axillae are unremarkable. IMPRESSION: BI-RADS Category 2 No mammographic features suspicious for malignancy are identified. ACR BI-RADS Category 2: Benign findings. Result letter will be mailed to the patient. Note: At least 10% of breast cancer is not imaged by mammography. Dictated by: Dictated on workstation # [id number]
== END ==
LOC: RAD 11:22
PROVIDERS: ATTEND Obstetrics & Gynecology
DX: Z12.31 Encounter for screening mammogram for malignant neoplasm of breast (principal)
CPT/HCPCS: 77063; 77067

== ENCOUNTER → 2021-01-04 | Outpatient (CLI) | payer OTHER ==
--- NOTE | 2021-01-04 14:07 | Diagnostic Imaging Report ---
PROCEDURE: US Thyroid. TECHNIQUE: Multiple real-time grayscale images were obtained of the thyroid in various projections. INDICATION: Thyroid nodules, follow-up. Correlation is made with prior thyroid ultrasound from 12/28/2018. Right lobe of the thyroid measures 5.6 x 1.7 x 2.0 cm and the left lobe measures 3.9 x 1.3 x 1.5 cm. Isthmus is 2 mm in thickness. A small cyst in the upper pole of the right lobe of the thyroid is approximately 4 mm in size, stable. The solid mass in the right lobe measures 2.3 x 1.8 x 1.4 cm compared with 2.4 x 1.7 x 2.1 cm on prior. Hypoechoic nodule in the left lobe is stable at approximately 6 mm. No new mass is detected. IMPRESSION: Stable thyroid ultrasound when compared with the examination two years earlier. Dictated by: Dictated on workstation # [id number]
== END ==
LOC: RAD 12:30
PROVIDERS: ATTEND Nurse Practitioner Family
DX: E04.2 Nontoxic multinodular goiter (principal)
CPT/HCPCS: 76536

== ENCOUNTER → 2021-08-06 | Outpatient (CLI) | payer OTHER | LOC: LABNPT 08:27 | PROVIDERS: ATTEND Family Medicine | DX: J02.9 Acute pharyngitis, unspecified (principal); Z20.822 Contact with and (suspected) exposure to COVID-19 | CPT/HCPCS: 87636 ==

== ENCOUNTER → 2021-10-11 | Outpatient (CLI) | payer BC ==
--- NOTE | 2021-10-11 10:59 | Diagnostic Imaging Report ---
INDICATION: Routine screening. Comparison is made prior mammogram 09/27/2020 and 09/14/2019. 2-D and 3-D bilateral screening mammography was performed with CAD. Both breasts are heterogeneously dense, limiting the sensitivity of mammography. Circumscribed densities bilaterally again noted consistent with cysts. No spiculated mass or malignant-appearing microcalcifications are seen. Axillae are unremarkable. IMPRESSION: No mammographic features suspicious for malignancy are identified. BI-RADS Category 2 ACR BI-RADS Category 2: Benign findings. Result letter will be mailed to the patient. Note: At least 10% of breast cancer is not imaged by mammography. Dictated by: Dictated on workstation # [id number]
== END ==
LOC: RAD 07:30
PROVIDERS: ATTEND Obstetrics & Gynecology
DX: Z12.31 Encounter for screening mammogram for malignant neoplasm of breast (principal)
CPT/HCPCS: 77063; 77067

== ENCOUNTER → 2022-10-23 | Outpatient (CLI) | payer BC ==
--- NOTE | 2022-10-24 09:21 | Diagnostic Imaging Report ---
3-D bilateral screening mammogram with CAD. COMPARISONS: This study was compared to the prior exams of 10/11/2021, 09/27/2020 and 09/14/2019. There are no current complaints. FINDINGS: The fibroglandular tissue in both breasts is extremely dense. This does limit the sensitivity of this exam. As on previous studies, there are several well-circumscribed rounded/oval asymmetries in both breasts. These are felt to represent benign waxing and waning cysts. There is no primary or secondary sign of malignancy noted. IMPRESSION: 1. There is no evidence for malignancy. ACR category 1 ACR BI-RADS Category 1: Negative. Result letter will be mailed to the patient. Note: At least 10% of breast cancer is not imaged by mammography. Dictated by: Dictated on workstation # [id number]
== END ==
LOC: RAD 11:12
PROVIDERS: ATTEND Family Medicine
DX: Z12.31 Encounter for screening mammogram for malignant neoplasm of breast (principal)
CPT/HCPCS: 77063; 77067

== ENCOUNTER 2022-10-29 06:43 | Emergency (ER) | payer BC ==
[~2022-10-29] VITALS: Ht 177 cm; Wt 86.0 kg
[2022-10-29 07:29] LABS: BASOPHILS % (AUTO) 0 % (0-10); EOSINOPHILS % (AUTO) 0 % (0-10); HEMATOCRIT 40 % (35-52); HEMOGLOBIN 13.7 g/dL (11.5-16.0); LYMPHOCYTES # (AUTO) 2.1 10^3/uL (1.0-4.0); LYMPHOCYTES % (AUTO) 23 % (12-44); MEAN CORPUSCULAR HEMOGLOBIN 30 pg (25-34); MEAN CORPUSCULAR HGB CONC 34 g/dL (32-36); MEAN CORPUSCULAR VOLUME 87 fL (80-99); MEAN PLATELET VOLUME 10.2 fL (9.0-12.2); MONOCYTES # (AUTO) 0.5 10^3/uL (0.0-1.0); MONOCYTES % (AUTO) 5 % (0-12); NEUTROPHILS # (AUTO) 6.5 10^3/uL (1.8-7.8); NEUTROPHILS % (AUTO) 71 % (42-75); PLATELET COUNT 241 10^3/uL (130-400); WHITE BLOOD COUNT 9.2 10^3/uL (4.3-11.0)
[2022-10-29] MEDS ORDERED: LACTATED RINGERS 1,000 ML IV ONE (07:30)
[2022-10-29] MEDS ORDERED: KETOROLAC 30 MG/ML VIAL IVP ONE (07:30)
[2022-10-29] MEDS ORDERED: ONDANSETRON 4 MG/2 ML (SDV) Z0FRAN IVP ONE (07:30)
[2022-10-29 07:39] LABS: ALBUMIN 4.1 GM/DL (3.2-4.5); POTASSIUM 3.9 MMOL/L (3.6-5.0)
[2022-10-29 07:41] LABS: TOTAL PROTEIN 7.1 GM/DL (6.4-8.2)
[2022-10-29 07:43] LABS: BILIRUBIN,TOTAL 0.3 MG/DL (0.1-1.0)
[2022-10-29 07:44] LABS: BILIRUBIN,URINE NEGATIVE (NEGATIVE); CLARITY,URINE CLEAR; COLOR,URINE YELLOW; GLUCOSE, URINE (UA) NEGATIVE (NEGATIVE); KETONES,URINE 2+ (NEGATIVE); LEUKOCYTE ESTERASE ,URINE NEGATIVE (NEGATIVE); NITRITE,URINE NEGATIVE (NEGATIVE); PH,URINE 6.5 (5-9); PROTEIN,URINE NEGATIVE (NEGATIVE)
[2022-10-29 07:45] LABS: CREATININE SERUM 1.07 MG/DL (0.60-1.30)
[2022-10-29] MEDS ORDERED: HYOSCYAMINE 0.125 MG (LEVSIN) TAB SL ONE (07:45)
--- NOTE | 2022-10-29 07:55 | ED Abdominal Pain ---
General Chief Complaint: Abdominal/GI Problems Stated Complaint: ABD PAIN,LEFT SIDE Nursing Triage Note: PT AMB TO RM 6 PT STATES HAS SEVERE ABD PAIN IN L LOWER ABD RATES /10. STARTED ABOUT 0500 THIS AM. STATES HAS HAD 4-5 LOOSE BM THIS AM Source of Information: Patient Exam Limitations: No Limitations History of Present Illness Date Seen by Provider: Oct 29, 2022 Time Seen by Provider: 06:51 Initial Comments This 47-year-old woman presents to the emergency room with abrupt left-sided abdominal pain that started early this morning at 0500. She has associated nausea and loose stool. She has not noted any urinary changes. She has no history of ureteral stones. She denies as her has had vasectomy and she has been on control. She is afebrile. She is in distress and writhing in pain on arrival. Allergies and Home Medications Allergies Coded Allergies: No Known Drug Allergies (Unverified , 09/13/20) Patient Home Medication List Home Medication List Reviewed: Yes Cephalexin (Cephalexin) 500 Mg Tablet, 500 MG PO TID Prescribed by: JAYDEN LOVETT on 10/29/22 0903 Desogestrel-Ethinyl Estradiol (Juleber 28 Day Tablet) 1 Each Tablet, 1 EACH PO DAILY, (Reported) Entered as Reported by: HUGO HERNANDEZ on 01/13/20 1242 Docusate Sodium (Colace) 100 Mg Capsule, 100 MG PO BID Prescribed by: YOUSIF MALIK on 09/13/20 0959 Fluoxetine HCl (Prozac) 20 Mg Capsule, 20 MG PO DAILY, (Reported) Entered as Reported by: GUALBERTO MCWILLIAMS on 11/25/18 1044 Hydrocodone/Acetaminophen (Hydrocodone/Acetaminophen 5 MG/325 MG TAB) 1 Each Tablet, 1 TAB PO Q4-6HR Prescribed by: YOUSIF MALIK on 09/13/20 0959 Hydrocodone/Acetaminophen (Hydrocodone-Acetamin 5-325 mg) 5 Mg-325 Mg Tablet, 1- 2 TAB PO Q4H PRN for PAIN-MODERATE (5-7) Prescribed by: JAYDEN LOVETT on 10/29/22 0904 Hyoscyamine Sulfate (Levsin-Sl) 0.125 Mg Tab.subl, 1-2 MG SL Q4H PRN for SPASMS Prescribed by: JAYDEN LOVETT on 10/29/22 09 Ondansetron (Ondansetron Odt) 4 Mg Tab.rapdis, 4 MG SL Q4H PRN for NAUSEA/V OMITING Prescribed by: JAYDEN LOVETT on 10/29/22902 Review of Systems Review of Systems Constitutional: no symptoms reported EENTM: No Symptoms Reported Respiratory: No Symptoms Reported Cardiovascular: No Symptoms Reported Gastrointestinal: See HPI Genitourinary: No Symptoms Reported Musculoskeletal: no symptoms reported Skin: no symptoms reported Psychiatric/Neurological: No Symptoms Reported Endocrine: No Symptoms Reported Past Kekbxvz-Mxlall-Zukqyk Hx Patient Social History Tobacco Use?: No Substance use?: No Alcohol Use?: Yes Alcohol type: Wine Alcohol Frequency: Once in a while Pt feels they are or have been: No Immunizations Up To Date Influenza Vaccine Up-to-Date: No; Not Current First/Initial COVID19 Vaccinat: YES Second COVID19 Vaccination Husam: YES Seasonal Allergies Seasonal Allergies: No Past Medical History Surgery/Hospitalization HX: GALL BLADDER, IBS Surgeries: Yes (LEFT INGUINAL HERNIA , breast lumpectomy) Abdominal (Inguinal hernia as infant), Breast (Lumpectomy), Gallbladder Respiratory: No Currently Using CPAP: No Currently Using BIPAP: No Cardiac: No Neurological: No : No Female Reproductive Disorders: Denies Sexually Transmitted Disease: No HIV/AIDS: No Genitourinary: No Gastrointestinal: Yes (LEFT INGUINAL HERNIA REPAIRED INFANT) Hemorrhoids, Irritable Bowel Musculoskeletal: No Endocrine: Yes (Stable thyroid nodule) HEENT: No Cancer: No Psychosocial: No Integumentary: No Blood Disorders: No Adverse Reaction/Blood Tranf: No (N/A) Physical Exam Vital Signs Vital Signs - First Documented 10/29/22 07:05 Temp 35.5 Pulse 84 Resp 28 B/P (MAP) 149/81 (103) Pulse Ox 100 Capillary Refill : Less Than 3 Seconds Height/Weight/BMI Height: 5'10.00" Weight: 158lbs. 0.0oz. 71.920392ce; 27.00 BMI Method:Stated General Appearance: WD/WN, moderate distress HEENT: normal ENT inspection Neck: normal inspection Respiratory: lungs clear, normal breath sounds, no respiratory distress Cardiovascular: regular rate, rhythm, no edema, no murmur Gastrointestinal: soft, abnormal bowel sounds (Decreased); No distended; tenderness (Mild in the left lower quadrant) Extremities: normal inspection Neurologic/Psychiatric: no motor/sensory deficits, alert, normal mood/affect, oriented x 3 Skin: normal color, warm/dry Progress/Results/Core Measures Results/Orders Lab Results Laboratory Tests Test 10/29/22 07:08 10/29/22 07:31 Range/Units White Blood Count 9.2 4.3-11.0 10^3/uL Red Blood Count 4.63 3.80-5.11 10^6/uL Hemoglobin 13.7 11.5-16.0 g/dL Hematocrit 40 35-52 % Mean Corpuscular Volume 87 80-99 fL Mean Corpuscular Hemoglobin 30 25-34 pg Mean Corpuscular Hemoglobin Concent 34 32-36 g/dL Red Cell Distribution Width 12.2 10.0-14.5 % Platelet Count 241 130-400 10^3/uL Mean Platelet Volume 10.2 9.0-12.2 fL Immature Granulocyte % (Auto) 0 % Neutrophils (%) (Auto) 71 42-75 % Lymphocytes (%) (Auto) 23 12-44 % Monocytes (%) (Auto) 5 0-12 % Eosinophils (%) (Auto) 0 0-10 % Basophils (%) (Auto) 0 0-10 % Neutrophils # (Auto) 6.5 1.8-7.8 10^3/uL Lymphocytes # (Auto) 2.1 1.0-4.0 10^3/uL Monocytes # (Auto) 0.5 0.0-1.0 10^3/uL Eosinophils # (Auto) 0.0 0.0-0.3 10^3/uL Basophils # (Auto) 0.0 0.0-0.1 10^3/uL Immature Granulocyte # (Auto) 0.0 0.0-0.1 10^3/uL Sodium Level 139 135-145 MMOL/L Potassium Level 3.9 3.6-5.0 MMOL/L Chloride Level 106 98-107 MMOL/L Carbon Dioxide Level 18 L 21-32 MMOL/L Anion Gap 15 H 5-14 MMOL/L Blood Urea Nitrogen 14 7-18 MG/DL Creatinine 1.07 0.60-1.30 MG/DL Estimat Glomerular Filtration Rate 64 BUN/Creatinine Ratio 13 Glucose Level 159 H 70-105 MG/DL Calcium Level 9.0 8.5-10.1 MG/DL Corrected Calcium 8.9 8.5-10.1 MG/DL Total Bilirubin 0.3 0.1-1.0 MG/DL Aspartate Amino Transf (AST/SGOT) 17 5-34 U/L Alanine Aminotransferase (ALT/SGPT) 20 0-55 U/L Alkaline Phosphatase 44 40-136 U/L Total Protein 7.1 6.4-8.2 GM/DL Albumin 4.1 3.2-4.5 GM/DL Lipase 46 8-78 U/L Serum Test, Qualitative NEGATIVE NEGATIVE Urine Color YELLOW Urine Clarity CLEAR Urine pH 6.5 5-9 Urine Specific [place] 1.020 1.016-1.022 Urine Protein NEGATIVE NEGATIVE Urine Glucose (UA) NEGATIVE NEGATIVE Urine Ketones 2+ H NEGATIVE Urine Nitrite NEGATIVE NEGATIVE Urine Bilirubin NEGATIVE NEGATIVE Urine Urobilinogen 0.2 < = 1.0 MG/DL Urine Leukocyte Esterase NEGATIVE NEGATIVE Urine RBC (Auto) 2+ H NEGATIVE Urine RBC 10-25 H /HPF Urine WBC 0-2 /HPF Urine Squamous Epithelial Cells 2-5 /HPF Urine Crystals NONE /LPF Urine Bacteria FEW H /HPF Urine Casts NONE /LPF Urine Mucus SMALL H /LPF Urine Culture Indicated YES My Orders Orders - JAYDEN WOODS MD Ua Culture If Indicated (10/29/22 06:54) Ondansetron Injection (Zofran Injectio (10/29/22 07:30) Ed Iv/Invasive Line Start (10/29/22 07:20) Lactated Ringers (Lr 1000 Ml Iv Solution (10/29/22 07:30) Ketorolac Injection (Toradol Injection) (10/29/22 07:30) Cbc With Automated Diff (10/29/22 07:22) Comprehensive Metabolic Panel (10/29/22 07:22) Hcg,Qualitative Serum (10/29/22 07:22) Hyoscyamine Sl Tablet (Levsin Sl Tablet) (10/29/22 07:45) Lipase (10/29/22 07:46) Urine Culture (10/29/22 07:31) Abdomen/Kub 1view (10/29/22 08:09) Medications Given in ED Vital Signs/I&O 10/29/22 10/29/22 07:05 09:24 Temp 35.5 Pulse 84 68 Resp 28 16 B/P (MAP) 149/81 (103) 132/60 Pulse Ox 100 100 Blood Pressure Mean: 103 Progress Progress Note #1: Time: 07:55 Progress Note Patient was interviewed and examined. Symptoms appeared consistent with ureteral stone. She was treated with Toradol and Zofran. She had some residual cramping in the abdomen after treatment. Levsin was administered for the cramping. Imaging selection will be determined after review of the urinalysis and labs. Patient is much more comfortable after treatment. IV fluids are infusing. Progress Note #2: Time: 08:10 Progress Note Labs were reviewed including CBC, CMP, lipase, and urinalysis. Blood work was unremarkable but urinalysis demonstrated hematuria suggestive of ureteral stone as cause of pain. Ketones were also noted in the urine suggesting hypovolemia. I discussed options with the patient and her regarding imaging. Risks and benefits of CT scan were reviewed. Risks of CT included cost and radiation exposure. Benefits included more definitive diagnosis including understanding if a kidney stone is present, how large it is and whether prompt referral to a urologist is warranted. As an alternative, KUB was offered. After reviewing risks and benefits, patient elects to forego CT scan and obtain only the KUB. She is comfortable at this time. Progress Note #3: Progress Note KUB was unremarkable. Patient was discharged with a strainer and discharge instructions were reviewed. See discharge instructions for further discussion. Diagnostic Imaging Diagonstic Imaging: Xray Plain Films/CT/US/NM/MRI: abdomen, pelvis Comments KUB viewed by me. No calcifications suspicious for ureteral stone were identified. No other acute abnormalities were identified either. Radiologist's report was also reviewed as below: NAME: DIAZ [facility] REC#: [id number] PT STATUS: REG ER : 1975 PHYSICIAN: JAYDEN WOODS MD ADMIT DATE: 10/29/22/ER Draft Date of Exam:10/29/22 ABDOMEN/KUB 1VIEW INDICATION: Abdominal pain COMPARISON: 07/25/2017 TECHNIQUE: Two radiographs of the abdomen dated 10/29/2022. FINDINGS: Minimally visualized lung bases are clear. Surgical clips are now identified within the right upper abdomen. Calcifications overlying the left upper abdomen and right upper abdomen are again identified, felt to relate to calcified hepatic and splenic granuloma. Nonobstructive bowel gas pattern. No free air. No acute osseous abnormality. IMPRESSION: No acute abnormality with postsurgical changes and evidence of chronic granulomatous disease. Dictated on workstation # [id number] Dict: 10/29/22 0841 Trans: 10/29/2246 CHRISS [id number] Interpreted by: NICHOL CARTWRIGHT MD Departure Impression Primary Impression: Left lower quadrant pain Additional Impressions: Nausea Hematuria Qualified Codes: R31.9 - Hematuria, unspecified Disposition: HOME, SELF-CARE Condition: Improved Departure-Patient Inst. Decision time for Depature: 09:00 Referrals: BRENDAN BROWNING MD (PCP/Family) Primary Care Physician Patient Instructions: Abdominal Pain, Adult ED, Blood in Urine (Hematuria), Adult ED, Kidney Stone, Adult ED Add. Discharge Instructions: For pain you may take ibuprofen up to 600 mg every 6 hours as needed. Add either Tylenol (acetaminophen) up to 1000 mg every 6 hours as needed or hydrocodone as prescribed for more severe pain. Please be advised hydrocodone contains Tylenol (acetaminophen), so do not exceed a total of 1000 mg of acetaminophen every 6 hours. Hydrocodone may also cause drowsiness, so use with caution. Do not drive, operate machinery, or make important decisions on hydrocodone. Hydrocodone may also cause constipation so you may choose to take a stool softener such as Colace while on hydrocodone. Use Zofran (ondansetron) dissolved under the tongue as prescribed for nausea or vomiting. You may use Levsin (hyoscyamine) for pain of a cramping nature. Drink plenty of clear liquids to stay well-hydrated, and strain your urine. Bring any stones or fragments collected to your follow-up appointment. Stones may have a variety of appearances including small flecks or large granular chunks and may be of a variety of colors. Complete your antibiotic as prescribed to prevent development of infection associated with kidney stone. Please follow-up with Dr. BROWNING within the next couple of weeks. You should have your urine checked again to be sure the blood clears as blood in the urine could be related to a number of pathologies including infection, cancer, kidney stones, etc. Return to the emergency room if you have worsening symptoms, develop new symptoms such as fever, or have symptoms not responsive to the medications you were provided. All discharge instructions reviewed with patient and/or family. Voiced understanding. Scripts Hyoscyamine Sulfate (Levsin-Sl) 0.125 Mg Tab.subl 1-2 MG SL Q4H PRN for SPASMS, #10 TAB 0 Refills Prov: JAYDEN WOODS MD 10/29/22 Hydrocodone/Acetaminophen (Hydrocodone-Acetamin 5-325 mg) 5 Mg-325 Mg Tablet 1-2 TAB PO Q4H PRN for PAIN-MODERATE (5-7), #15 TAB Prov: JAYDEN WOODS MD 10/29/22 Cephalexin (Cephalexin) 500 Mg Tablet 500 MG PO TID, #15 TAB Prov: JAYDEN WOODS MD 10/29/22 Ondansetron (Ondansetron Odt) 4 Mg Tab.rapdis 4 MG SL Q4H PRN for NAUSEA/VOMITING, #10 TAB Prov: JAYDEN WOODS MD 10/29/22 Work/School Note: Work Release Form Date Seen in the Emergency Department: Oct 29, 2022 Return to Work: Oct 30, 2022 Restrictions: No Restrictions Copy Copies To 1: BRENDAN BROWNING MD, JOSHUA T MD Oct 29, 2022 07:55
[2022-10-29 07:56] LABS: BACTERIA,URINE FEW /HPF; WBC,URINE 0-2 /HPF
--- NOTE | 2022-10-29 08:47 | Diagnostic Imaging Report ---
INDICATION: Abdominal pain COMPARISON: 07/25/2017 TECHNIQUE: Two radiographs of the abdomen dated 10/29/2022. FINDINGS: Minimally visualized lung bases are clear. Surgical clips are now identified within the right upper abdomen. Calcifications overlying the left upper abdomen and right upper abdomen are again identified, felt to relate to calcified hepatic and splenic granuloma. Nonobstructive bowel gas pattern. No free air. No acute osseous abnormality. IMPRESSION: No acute abnormality with postsurgical changes and evidence of chronic granulomatous disease. Dictated by: Dictated on workstation # [id number]
[2022-10-29] MEDS ORDERED: CEPH500T PO (09:03)
[2022-10-29] MEDS ORDERED: ACHD5005 PO (09:03)
[2022-10-29] MEDS ORDERED: HYOS0.1283 SL (09:03)
[2022-10-29] MEDS ORDERED: ONDA4TAB11 SL (09:03)
[2022-10-29 09:24] VITALS: BP 132/60
== END 2022-10-29 09:24 | disposition home or self-care (01) ==
LOC: EDUNIT# 06:43 → ER 06:47
DX: R10.32 Left lower quadrant pain (principal); R11.0 Nausea; R31.9 Hematuria, unspecified; R82.4 Acetonuria; Z87.19 Personal history of other diseases of the digestive system; Z98.890 Other specified postprocedural states
CPT/HCPCS: 36415; 74018; 80053; 81000; 83690; 84703; 85025; 87088

== ENCOUNTER → 2022-11-12 | Outpatient (CLI) | payer BC ==
[~2022-11-12] MED LIST changes: +CEPH500T PO; +ONDA4TAB11 SL
--- NOTE | 2022-11-12 16:55 | Diagnostic Imaging Report ---
PROCEDURE: CT abdomen and pelvis without contrast. TECHNIQUE: Multiple contiguous axial images were obtained through the abdomen and pelvis without the use of intravenous contrast. Auto Exposure Controls were utilized during the CT exam to meet ALARA standards for radiation dose reduction. INDICATION: Increased abdominal pain COMPARISON: 07/25/2017 Unenhanced images of liver again demonstrates an approximately 5.3 cm low-density focus in the dome of the right lobe compatible with stable cavernous hemangioma. In addition there are calcified granulomas in the liver and splenic parenchyma. No pancreatic, adrenal gland or focal renal abnormalities identified. Gallbladder surgically absent. There is no free fluid in the abdomen or pelvis. No pathologically enlarged adenopathy is seen. Urinary bladder is decompressed. IMPRESSION: Stable appearance of the abdomen and pelvis without acute abnormality detected. Dictated by: Dictated on workstation # [id number]
== END ==
LOC: RAD 15:15
PROVIDERS: ATTEND Family Medicine
DX: R10.9 Unspecified abdominal pain (principal)
CPT/HCPCS: 74176

== ENCOUNTER → 2023-02-18 | Outpatient (CLI) | payer BC ==
--- NOTE | 2023-02-18 23:28 | Diagnostic Imaging Report ---
INDICATION: Thyroid nodules and goiter. COMPARISON: Study from 01/04/2021. FINDINGS: Right thyroid lobe is enlarged, heterogeneous and multinodular, 5.2 x 1.6 x 2.2 cm, unchanged in size. It has a dominant mid to lower pole mass, heterogeneous but predominantly hypoechoic, measuring 2.6 cm, previously 2.3 cm. It is present on a study of 2014 and at that time was 2.5 cm. It does have some coarse central calcifications. Left thyroid lobe 4.3 x 1.3 x 2.1 cm. An upper pole hypoechoic nodule of 6 mm is unchanged. Partly calcified midpole nodule is 4 mm. IMPRESSION: Dominant right lobe thyroid mass is unchanged in size from 2015. Small subcentimeter left lobe nodules show no suspicious feature. No adverse development. Dictated on workstation # [id number]
== END ==
LOC: RAD 11:35
PROVIDERS: ATTEND Physician Assistant
DX: E04.2 Nontoxic multinodular goiter (principal); R05.9 Cough, unspecified
CPT/HCPCS: 76536